=== PATIENT | male | born 1990 | race Caucasian/White ===

== ENCOUNTER 2019-11-04 18:56 | Inpatient (IN) | payer BC, SELFPAY ==
[2019-11-04] VITALS (18 sets, daily range): BP systolic 119–191; BP diastolic 69–106; PULSE 67–160; RESP 14–31; TEMP 36.6–38.2; O2SAT 35–100; BMI 31.2; BMI 29.8
--- NOTE | 2019-11-04 19:23 | ED.DCSUM_ITS ---
History of Present Illness Chief Complaint: Foreign Body Detail of Chief Complaint: Food bolus obstructing esophagus Informant: Patient Onset: Today, Weeks Timing: Continuous Quality: Read by Triston weems obstructing esophagus unable to swallow Location: Esophagus Current Severity: Moderate Maximum Severity: Moderate Worsened by: Nothing Relieved by: Nothing Associated Symptoms: Unable to swallow secretions Narrative: She is a healthy 29-year-old male on no medication and no medication allergies who presents because his been interval swallow after eating a rib eye steak. He feels it is stuck in his throat. He has not been able to swallow his own secretions. He has no prior history of esophageal obstruction. His only medical problem is related to his right knee. Prior similar symptoms: No Recent Illness/Hospitalization: No - Past Medical History (1) No significant past medical history Status: Acute Past Medical History - Allergies and Home Meds Allergies/Adverse Reactions: Allergies Fish Containing Products Allergy (Verified 11/04/19 18:57) Hives Prior records reviewed: Yes Past Medical History: None Surgical History: no surgical history Lives: Spouse/ Significant Other Smoking Status: Former smoker Alcohol: Rare Drugs: None - Family History Maternal Family History: Reports: No pertinent history Review of Systems General: Denies: Chills, Fever, Malaise, Sweats Eyes: Denies: Visual changes - bilaterally, Blurred Vision - bilaterally ENT: Reports: - - Pain and unable to swallow Cardiovascular: Denies: Chest pain, Palpitations, Heart racing Respiratory: Denies: Dyspnea, Cough, Sputum, Dyspnea on exertion Gastrointestinal: Denies: Abdominal pain, Nausea, Vomiting, Diarrhea, Melena, Hematochezia Musculoskeletal: Denies: Myalgias, Arthralgias, Neck pain, Back pain, Swelling, Extremity Pain Allergy: Denies: Uticaria, Swelling of the mouth Physical Exam Vital Signs/Narrative: Vital Signs Temp Pulse Resp BP Pulse Ox 11/04/19 18:58 97.9 F 73 15 123/90 H 95 Inital Vital Signs reviewed: Yes General: Well nourished, Well developed, - - Expectorating saliva into emesis bag Head: Normocephalic, Atraumatic Eyes: Perrl, EOMI. Negative for: Pale conjunctiva, Scleral icterus ENT: Moist mucous membranes, No rhinorrhea Neck: Supple, Nontender, No lymphadenopathy, No JVD, - - Trachea is midline. There is no inspiratory or expiratory stridor. Cardiovascular: Regular rate, Regular rhythm, No murmurs, Normal S1, Normal S2 Respiratory: No distress, CTA bilaterally, Chest nontender Skin: Normal color, No rash. Negative for: Cyanosis, Diaphoresis, Jaundice Neurological: Alert, Oriented x3, Cranial nerves II-XII grossly intact, Normal Strength, Normal Sensation Psychological: Normal affect, Normal Mood Diagnostic/Tx/Re-eval Chest X-Ray - ED: 1 View, Read by ED Physician, - - Endotracheal tube is in the right main bronchus. There is collapse of the left upper and left lower lung. OG is in proper position. Impressions Chest X-Ray 11/04/19 20:50 IMPRESSION: Right mainstem intubation with nearly complete atelectasis of the left lung. Recommend immediate repositioning of the endotracheal tube. Electronically Signed: David Stoner MD at 21:43 EST , Service support , 11/04/19 20:50 Chest 1 View (Portable) [RAD] Stat Laboratory Results 11/04/19 11/04/19 21:05 21:05 WBC 13.3 H RBC 4.89 Hgb 13.5 Hct 41.0 MCV 83.8 MCH 27.6 MCHC 32.9 RDW Std Deviation 41.7 RDW Coeff of Norberto 13.6 Plt Count 280 MPV 10.5 Immature Gran % (Auto) 1.000 H Neut % (Auto) 57.3 Lymph % (Auto) 34.0 [place] % (Auto) 6.2 Eos % (Auto) 1.1 Baso % (Auto) 0.4 Absolute Neuts (auto) 7.6 Absolute Lymphs (auto) 4.54 H Nucleated RBC % 0 Sodium 144 Potassium 3.6 Chloride 111 H Carbon Dioxide 26.0 Anion Gap 7 BUN 14 Creatinine 1.13 Estim Creat Clear Calc 96.46 Est GFR (MDRD) Af Amer 99 Est GFR (MDRD) Non-Af 81 BUN/Creatinine Ratio 12.4 Glucose 121 H Calcium 8.4 L Total Bilirubin 0.30 AST 24 ALT 43 Alkaline Phosphatase 94 Total Protein 7.7 Albumin 3.6 Globulin 4.1 Albumin/Globulin Ratio 0.9 The tracheal tube was pulled back 2 cm. White count is elevated 13.3. Comprehensive metabolic panel is essentially unremarkable. The glucose is slightly elevated at 121. Lactate is pending. Suspect lactate will be elevated because of hypoxia due to aspiration. Patient does not have an acute infectious process. - Medical Decision Making He was made n.p.o., placed on monitor and an IV was established. Dr. Basilia Canela was paged. She informed she does not remove esophageal foreign bodies. Dr. Fartun Zambrano will see patient in attempt to remove obstructing meat bolus from esophagus. - Critical Care Time Critical care time (excluding procedures): 30-74 minutes, Discussing w/Patient &/or Family/Director [employer], Discussing w/Consultants, Arranging Admission or Transfer - This excludes billable procedural time. Total critical care time 32 minutes this included discussion with patient and . Informing of events that occurred. Discussion with surgeon to perform EGD, discussion with hospitalist for admission to ICU, documentation, interpretation of laboratory results. Procedures Procedure(s): Deep sedation for EGD and removal of meat food bolus obstructing esophagus. Patient was informed of the risk benefits of using propofol. Risk benefits regarding EGD and removal of foreign body was discussed by surgeon. Patient denies allergy to soy products or milk products. He has no antibiotic allergies. Onset of procedure 2005. Conclusion of procedure 2044. Patient was administered boluses of IV propofol by me. At 2031 patient was noted to be tachycardic and appeared cyanotic. Pulse ox was abnormal. Even though the waveform was abnormal believed to be true since patient had central cyanosis. Call was made for assistance. Respiratory therapist arrived promptly. Multiple nurses arrived. Patient received 100 mg rocuronium. He was oral tracheal intubated using glide scope. 7.5 Ni[place] endotracheal tube was placed. Surgeon then completed EGD and did alleviate the obstruction. Because there is erosion of the esophagus patient will receive IV Protonix. Procedures: 1. Deep sedation. 2. Ventilation with bag valve mask. 3. Intubation by RSI technique. ED Disposition - Plan for ED Patient: Disposition: Acute Care Hospital [facility] Diagnosis: Acute respiratory failure with hypoxia, Aspiration pneumonia due to food (regurgitated), Esophageal obstruction due to food impaction
--- NOTE | 2019-11-04 20:02 | PCM.CONS.GEN ---
Reason for Consult Date of Consultation: 11/04/19 History of Present Illness: The patient is a 29 year old M presenting to the ER due to esophageal foreign body/food impaction. Patient states he was having his lunch about 5 PM which was T-bone steak. [place] like it caught in his upper esophagus. Patient has been spitting up his saliva. Patient denies any history of EGD in the past. Patient does have have a history of reflux however he did 30 days of Protonix but a month ago and denies any symptoms since then. Past Medical History Allergies Fish Containing Products Allergy (Verified 11/04/19 18:57) Hives Home Medications: Ambulatory Orders Medication Instructions Recorded Oxaprozin [Daypro] 600 mg PO BID 11/04/19 Surgical History: no surgical history Lives: Spouse/ Significant Other Smoking Status: Former smoker Alcohol: Rare Drugs: None - *Family History Maternal History Items: No pertinent history - Physical Exam Vitals/I&O's: Vital Signs Temp Pulse Resp BP Pulse Ox 97.9 F 73 15 123/90 H 95 11/04/19 18:58 11/04/19 18:58 11/04/19 18:58 11/04/19 18:58 11/04/19 18:58 Oxygen Delivery Method Room Air Weight: 211 lb 9.6 oz Body Mass Index (BMI) 31.2 General: Alert, Oriented x3, Cooperative HEENT: Atraumatic Lungs: Normal air movement Cardiovascular: Regular rate Abdomen: Soft, Non Tender, Non-Distended Extremities: No clubbing, No cyanosis, No edema Neurological: Cranial nerves II-XII grossly intact Psych/Mental Status: Normal Affect Assessment/Plan All Active Problems No significant past medical history (Acute) 29-year-old male with esophageal foreign body?steak I have discussed the above with the patient. I have offered the patient EGD with foreign body removal for evaluation. I have explained the risks/benefits of the procedure and described the procedure. I have discussed the risks with the patient, including but not limited to: infection, bleeding, perforation of the GI tract requiring emergency surgery, inability to complete the procedure and need to be transferred to a tertiary care facility, injury to any internal organs, complications of anesthesia, etc. - the patient understands and agrees to proceed. I have answered all the patient's questions to the patient's satisfaction and the patient has no further questions. Fartun Shepherd M.D. Pager: [phone] [facility] [address] [place] [address], [address] [place] [address] Office: [phone]
[2019-11-04] MEDS: Propofol 200 MG/20 ML Vial IV BOLUS (20:26)
[2019-11-04] MEDS: Propofol 200 MG/20 ML Vial 100 MG IV BOLUS (20:26)
[2019-11-04] MEDS: Rocuronium Bromide 50 MG/5 ML Vial 100 MG IV (20:34)
[2019-11-04] MEDS: Propofol 10MG/Ml 1,000 MG/100 ML Bottle 5.8 MG CONT INF (20:40)
--- NOTE | 2019-11-04 20:40 | EKG12_ITS ---
Test Reason : ADMIT EKG Blood Pressure : / mmHG Vent. Rate : 099 BPM Atrial Rate : 099 BPM P-R Int : 128 ms QRS Dur : 090 ms QT Int : 332 ms P-R-T Axes : -01 053 020 degrees QTc Int : 426 ms Normal sinus rhythm Normal ECG No previous ECGs available Confirmed by RADHA BOOKER, PEÑA ([id number]), web editor VIOLETTA MEJIA ([id number]) on 11/08/2019 11:44:28 AM Referred By: Eli Lyman Confirmed By:PEÑA GARCIA MD
--- NOTE | 2019-11-04 20:50 | RAD_ITS ---
We are attempting to reach an attending provider to discuss findings. An addendum with communication details will be sent when the communication is complete. STUDY: X-RAY CHEST REASON FOR EXAM: Male, 29 years old. Impaction food in the throat. TECHNIQUE: Single AP portable view of the chest. COMPARISON: None. FINDINGS: There is right mainstem intubation with near complete atelectasis of the right lung and shift of the mediastinum to the right. Endotracheal tube needs to be repositioned for a 5 cm proximally. Nasogastric tube terminates in the distal stomach. Right lung is clear. RAD/Chest 1 View (Portable) IMPRESSION: Right mainstem intubation with nearly complete atelectasis of the left lung. Recommend immediate repositioning of the endotracheal tube. Electronically Signed: David Stoner MD at 21:43 EST , Service support ,
--- NOTE | 2019-11-04 21:11 | ED.RN ---
2025 PT was undergoing EGD for steak stuck in throat. PT needed all 200 mg of Propofol for sedation and was gagging through procedure. O2 saturations went down in to low 30's. Staff assist pushed. EGD stopped. PT bagged while staff prepared for rapid sequence intubation. PT intubated at 2034 after 100mg of Aristides. was given. 7.5 ET tube intubated by Dr. Amaro with Dr. Shepherd and Dr. Herrera at bedside. 2nd IV placed. OG placed. PT underwent additional EGD and it was found that the steak was never in esophagus.
[2019-11-04 21:14] LABS: Absolute Lymphocyte Count 4.54 X10^3/uL (0.83-4.51); Absolute Neutrophil Count 7.6 X10^3/uL (2.0-7.7); Basophil# 0.05 X10^3/uL; Basophil% 0.4 % (0-1); Eosinophil# 0.15 X10^3/uL; Eosinophils% 1.1 % (0-5); Hemoglobin 13.5 g/dL (13.0-16.5); Lymphocyte # 4.54 X10^3/ul (4.0); Mean Corp Hgb Conc 32.9 g/dL (32-36); Mean Corpuscular Hgb 27.6 pg (27.0-32.0); Mean Corpuscular Volume 83.8 fL (80-94); Mean Platelet Vol. 10.5 fl (6.2-12.0); Monocyte# 0.83 X10^3/uL; Monocyte% 6.2 % (0-10); NRBC Flagged by Analyzer 0 % (0-5); Neutrophil # 7.63 X10^3/uL (2.7-7.7); Neutrophil % 57.3 % (47-70); Platelet Count 280 K/mm3 (150-450); RBC Distribution Width CV 13.6 % (11.6-14.6); RBC Distribution Width SD 41.7 fl (35.1-43.9); Red Blood Count 4.89 M/mm3 (4.6-6.2); White Blood Count 13.3 K/mm3 (4.4-11.0)
--- NOTE | 2019-11-04 21:22 | OP.EGD_ITS ---
Patient Name: Wayne Eugene Procedure Date: 11/04/2019 8:18 PM Date of : 1990 Age: 29 Procedure: Upper GI endoscopy Indications: Foreign body in the esophagus Providers: Fartun Shepherd MD Medicines: IV sedation per ER physician Dr. Amaro Patient Profile: This is a 29 year old male. Complications: Aspiration, treated with antibiotic, treated with intubation, treated with stabilization and transfer to the ICU Procedure: Pre-Anesthesia Assessment: - Prior to the procedure, a History and Physical was performed, and patient medications and allergies were reviewed. The patient's tolerance of previous anesthesia was also reviewed. The risks and benefits of the procedure and the sedation options and risks were discussed with the patient. All questions were answered, and informed consent was obtained. Prior Anticoagulants: The patient has taken no previous anticoagulant or antiplatelet agents. ASA Grade Assessment: II - A patient with mild systemic disease. After reviewing the risks and benefits, the patient was deemed in satisfactory condition to undergo the procedure. After obtaining informed consent, the endoscope was passed under direct vision. Throughout the procedure, the patient's blood pressure, pulse, and oxygen saturations were monitored continuously. The gastroscope was introduced through the mouth, with the intention of advancing to the stomach. The scope was advanced to the gastric body before the procedure was aborted. Medications were given. The procedure was aborted due to the patient's respiratory instability (pulmonary aspiration). Once pt was intubated by Dr. Amaro the scope was advanced to the stomach. Scope In: 8:27:36 PM Scope Out: 8:50:01 PM Total Procedure Duration Time 0 hours 22 minutes 25 seconds Findings: Thick liquid and small pieces of food were seen at GEJ, which some were able to be removed with the use of the overtube, but unable to get a good visualization. Patient did vomit and procedure was aborted due to respiratory distress and he was intubated. Once intubated, scope was passed down the esophagus and again a few small pieces of food was removed. There was irritation to the GEJ circumferentially. Large piece of food was seen in the fundus. Impression: - The procedure was aborted due to the patient's respiratory instability (pulmonary aspiration). - No specimens collected. - Replacement of the scope after intubation showed irritation at the GEJ likely from the large piece of food, food was seen in gastric fundus on repeat scope. Recommendation: - Admit the patient to ICU for aspiration. - Antibiotics for aspiration - Use Protonix (pantoprazole) 40 mg IV daily. - Continue present medications. Procedure Code(s): --- Professional --- 47974, 52, Esophagogastroduodenoscopy, flexible, transoral; diagnostic, including collection of specimen(s) by brushing or washing, when performed (separate procedure) Diagnosis Code(s): --- Professional --- Z53.09, Procedure and treatment not carried out because of other contraindication T18.108A, Unspecified foreign body in esophagus causing other injury, initial encounter CPT copyright 2017 [employer]. All rights reserved. The codes documented in this report are preliminary and upon buyer internship review may be revised to meet current compliance requirements. MD Fartun Clay MD 11/04/2019 9:22:06 PM This report has been signed electronically. Number of Addenda: 0 Note Initiated On: 11/04/2019 8:18 PM
[2019-11-04 21:38] LABS: International Normalized Ratio 1.3
[2019-11-04 21:39] LABS: Partial Thromboplast Time 30.7 Seconds (24.1-36.2)
[2019-11-04] MEDS: Albuterol 2.5 MG/3 ML VIAL.NEB. INHALATION (21:47)
[2019-11-04 21:48] LABS: ALB/GLOB Ratio 0.9 RATIO (0.9-2.4); AST(SGOT) 24 U/L (15-37); Alanine Aminotransfer ALT/SGPT 43 U/L (16-61); Albumin, Serum 3.6 g/dL (3.2-5.0); Alkaline Phosphatase 94 U/L (45-117); Anion Gap 7 (5-15); BUN 14 mg/dL (7-18); BUN/Creat Ratio 12.4 RATIO (10-20); Calcium,Total 8.4 mg/dL (8.5-10.1); Chloride 111 mmol/L (98-107); Creatinine, Serum 1.13 mg/dL (0.70-1.30); EST Glomerular Filtration Rate 81 mL/min (>60); Est Glom Filt Rate - Afr Amer 99 mL/min (>60); Estimated Creatinine Clearance 96.46 ml/min; Globulin 4.1 g/dL (2.2-4.2); Glucose 121 mg/dL (74-106); Potassium 3.6 mmol/L (3.5-5.1); Protein, Total 7.7 g/dL (6.4-8.2); Sodium Level 144 mmol/L (136-145)
[2019-11-04] MEDS: fentaNYL 100 MCG/2 ML Ampul 50 MCG IV (22:13)
--- NOTE | 2019-11-04 22:22 | HP.PCM_ITS ---
Problem List (1) Esophageal obstruction due to food impaction Status: Acute History of Present Illness Date of Admission: 11/04/19 The patient is a 29 year old M who is otherwise healthy presented to the ED today with the feeling that food was caught in his upper esophagus. He was eating his lunch at work which was a t-bone steak at about 1700 and then began having this feeling. He had since been spitting up his saliva. He was recently started on Protonix for GERD. General surgery was called in to extract the food impaction and during the procedure the pt had an emesis and dropped his O2 saturations. he became tachycardic and cyanotic during this period. He was intubated with a 7.5 ETT at that time and stabilized. After, the scope was reinserted and able to be passed into the fundus with the large piece of steak noted at that time in the stomach. There was circumfrential irritation of the esophagus and some blood in the OG tubing following this. CXR was perform and show significant infiltrate on the L. Pt was positioned on the L side for the procedure. Pt was stable but required ICU admission for persistent respiratory failure requiring mechanical ventilation. Past Medical History Allergies Fish Containing Products Allergy (Verified 11/04/19 18:57) Hives Home Medications: Ambulatory Orders Medication Instructions Recorded Oxaprozin [Daypro] 600 mg PO BID 11/04/19 Surgical History: no surgical history Lives: Spouse/ Significant Other Smoking Status: Former smoker Alcohol: Rare Drugs: None - *Family History Maternal History Items: No pertinent history Review of Systems Unable to obtain accurate/complete ROS d/t: Pt intubated and sedatated VTE Information - Inpt Only VTE Present on Admission: No VTE Mechan Device Prophylaxis: SCD's VTE Pharm Prophylaxis ordered?: Yes Patient Problems: Active and Suspected Problems Acute respiratory failure with hypoxia (Acute) Aspiration pneumonia due to food (regurgitated) (Acute) Esophageal obstruction due to food impaction (Acute) - Physical Exam Vitals/I&O's: Vital Signs Temp Pulse Resp BP Pulse Ox 97.9 F 88 16 136/103 H 94 11/04/19 18:58 11/04/19 21:49 11/04/19 21:49 11/04/19 22:00 11/04/19 21:33 Oxygen Flow Rate (L/min) [1] 97 Oxygen Flow Rate (L/min) [4] 6 Oxygen Flow Rate (L/min) [3] 6 Oxygen Delivery Method [1] Nasal Cannula Oxygen Delivery Method [4] Room Air Oxygen Delivery Method [3] Nasal Cannula Oxygen Delivery Method Mechanical Ventilator Weight: 95.98 kg Body Mass Index (BMI) 31.2 Intake and Output for Last 24 Hours 11/02/19 11/03/19 11/04/19 23:59 23:59 23:59 Intake Total 121.81 / 121.81 Balance 121.81 / 121.81 General: - - intubated and sedated on mechanical ventilation HEENT: Atraumatic, PERRLA, Normocephalic, EAC Clear Oral: Moist Mucosa Neck: Supple, No JVD, Negative Carotid Bruits, Negative Hepatojugular Reflux, No Nodes, No Nuchal Rigidity, Trachea Midline, Thyroid Normal Size and Texture Lungs: No wheeze, No rales, Rhonchi - L lung Cardiovascular: Regular rate, Regular Rhythm, Normal S1, Normal S2, No murmurs, No Ectopic Activity, No rub noted, No Gallop Abdomen: Bowel Sounds Present, Soft, Non Tender, Non-Distended, No Hepato- splenomegaly, No hernias noted, - - overweight Extremities: No clubbing, No cyanosis, No edema, Capillary Refill Less than 3 Seconds, Peripheral Pulses Normal Skin: No rashes, No breakdown, Ulcer/ Wound Musculoskeletal: No Tenderness to Palpation of Joints or Extremities, No Muscle Wasting, - - Knee brace on R knee Lymphatic: No Cervical, Supraclavicular, or Inguinal Adenopathy Neurological: Deep Tendon Reflexes 2+/4 and Symmetrical, - - unable to do complete neuro eval as pt is intubated and sedated Psych/Mental Status: - - unable to assess Laboratory Results 11/04/19 21:05: WBC 13.3 H, RBC 4.89, Hgb 13.5, Hct 41.0, MCV 83.8, MCH 27.6, MCHC 32.9, RDW Std Deviation 41.7, RDW Coeff of Norberto 13.6, Plt Count 280, MPV 10.5, Immature Gran % (Auto) 1.000 H, Neut % (Auto) 57.3, Lymph % (Auto) 34.0, [place] % (Auto) 6.2, Eos % (Auto) 1.1, Baso % (Auto) 0.4, Absolute Neuts (auto) 7.6, Absolute Lymphs (auto) 4.54 H, Nucleated RBC % 0 11/04/19 21:05: Sodium 144, Potassium 3.6, Chloride 111 H, Carbon Dioxide 26.0, Anion Gap 7, BUN 14, Creatinine 1.13, Estim Creat Clear Calc 96.46, Est GFR (MDRD) Af Amer 99, Est GFR (MDRD) Non-Af 81, BUN/Creatinine Ratio 12.4, Glucose 121 H, Calcium 8.4 L, Total Bilirubin 0.30, AST 24, ALT 43, Alkaline Phosphatase 94, Total Protein 7.7, Albumin 3.6, Globulin 4.1, Albumin/Globulin Ratio 0.9 11/04/19 21:25: PT 16.0 H, INR 1.3, APTT 30.7 11/04/19 21:25: Lactic Acid Pending Current Medications Propofol (Diprivan) 1,000 mg in 100 mls @ 5.759 mls/hr CONT INF .Q12H ZULEYMA; Protocol Last Titration: 11/04/19 22:00 Dose: 30 mcg/kg/min, 17.3 mls/hr Documented by: Pantoprazole Sodium 40 mg/ (Sodium Chloride) 110 mls @ 330 mls/hr IV Q12 ZULEYMA Fentanyl () 100 mls @ 2.5 mls/hr IV UD ZULEYMA; Protocol Assessment/Plan All Active Problems No significant past medical history (Acute) Acute respiratory failure with hypoxia (Acute) Aspiration pneumonia due to food (regurgitated) (Acute) Esophageal obstruction due to food impaction (Acute) Acute Hypoxemic Respiratory Failure 2/2 Aspiration -pt intubated and sedated -Unasyn for aspiration coverage -check sputum cx -AM CXR -Hold TF for now with OG to LIS -ABG in am -vent weaning as able starting 11/05 -consult to pulm/CCM Esophageal Food Impaction -resolved -hold TF until ok with Gen Surgery -IV protonix BID 40 mg GERD -PPI--> See above R Knee Pain -no current issues -has been on Daypro at home DVT prophylaxis -lovenox sub q 40 mg Code Visit Inpatient E&M: 13859 Init Hosp L3
[2019-11-04 22:24] LABS: Lactic Acid 1.1 mmol/L (0.4-1.9)
--- NOTE | 2019-11-04 22:58 | ED.RN ---
2200 PT AGITATED, TRYING TO COMMUNICATE WITH SPOUSE. MORE SEDATION MED GIVEN. NEW SEDATION ORDER OBTAINED. SOFT RESTRAINTS APPLIED. PT VOMITED. OG FLUSHED, FLUSHES EASILY, DOES NOT DRAW BACK ANY FLUIDS, ONLY AIR. COATING INSPECTOR JOSE M NOTIFIED. PROTONIX ORDERS CLARIFIED. BROUGHT TO ICU WAITING ROOM AND UPDATED ON POC.
[2019-11-04] MEDS: Lactated Ringers 1,000 ML 70 ML IV (23:30)
[2019-11-04] MEDS: fentaNYL drip 100 ML 2.5 MCG IV (23:30)
[2019-11-04] MEDS: Chlorhexidine 15 ML PO (23:30)
[2019-11-04 23:52] LABS: CPK Total, Creatine Kinase 299 U/L (39-308); Triglycerides 276 mg/dL
[2019-11-05] VITALS (41 sets, daily range): BP systolic 95–127; BP diastolic 56–83; PULSE 59–110; RESP 14–18; TEMP 37.5–39.3; O2SAT 94–100
[2019-11-05] MEDS: Acetaminophen 650 MG/20 ML UDC GT ×2 (00:53→21:22)
[2019-11-05] MEDS: Propofol 10MG/Ml 1,000 MG/100 ML Bottle 17.3 MG CONT INF (03:14)
--- NOTE | 2019-11-05 04:10 | RAD_ITS ---
HISTORY: VDRF EXAM: XR Chest 1 View: COMPARISON: November 04, 2019 FINDINGS: # of images incl. paperwork: 1 The endotracheal tube terminates superimposed over the trachea, below the level of the clavicular heads, and above the debbie. Esophagogastric tube's tip is below the diaphragm. Heart is not enlarged. Right lung airspace disease persists but has markedly improved since the previous study with increased aeration Pulmonary vascularity is more distinct in the left hemithorax. Probable small left pleural effusions. RAD/Chest 1 View (Portable) IMPRESSION: Withdrawal of the endotracheal tube above the debbie. Improved aeration to the left lung with persistent left lower lobe airspace disease. at 0510 Reported and signed by: Moe Langston MD Electronically Signed: Moe Langston MD at 5:09 EST Tel , Service support ,
[2019-11-05 04:30] LABS: Absolute Lymphocyte Count 1.49 X10^3/uL (0.83-4.51); Absolute Neutrophil Count 15.3 X10^3/uL (2.0-7.7); Basophil# 0.05 X10^3/uL; Basophil% 0.3 % (0-1); Eosinophil# 0.14 X10^3/uL; Eosinophils% 0.8 % (0-5); Hematocrit 43.3 % (40-54); Hemoglobin 14.2 g/dL (13.0-16.5); Lymphocyte # 1.49 X10^3/ul (4.0); Lymphocyte % 8.2 % (19-41); Mean Corp Hgb Conc 32.8 g/dL (32-36); Mean Corpuscular Hgb 27.6 pg (27.0-32.0); Mean Corpuscular Volume 84.1 fL (80-94); Mean Platelet Vol. 10.5 fl (6.2-12.0); Monocyte# 1.12 X10^3/uL; Monocyte% 6.2 % (0-10); NRBC Flagged by Analyzer 0 % (0-5); Neutrophil # 15.25 X10^3/uL (2.7-7.7); Neutrophil % 83.8 % (47-70); Platelet Count 287 K/mm3 (150-450); RBC Distribution Width CV 13.5 % (11.6-14.6); RBC Distribution Width SD 41.5 fl (35.1-43.9); Red Blood Count 5.15 M/mm3 (4.6-6.2); White Blood Count 18.2 K/mm3 (4.4-11.0)
[2019-11-05 04:48] LABS: ALB/GLOB Ratio 0.8 RATIO (0.9-2.4); AST(SGOT) 20 U/L (15-37); Alanine Aminotransfer ALT/SGPT 43 U/L (16-61); Albumin, Serum 3.4 g/dL (3.2-5.0); Alkaline Phosphatase 87 U/L (45-117); Anion Gap 6 (5-15); BUN 12 mg/dL (7-18); Calcium,Total 8.3 mg/dL (8.5-10.1); Chloride 107 mmol/L (98-107); EST Glomerular Filtration Rate 76 mL/min (>60); Est Glom Filt Rate - Afr Amer 92 mL/min (>60); Estimated Creatinine Clearance 90.83 ml/min; Globulin 4.1 g/dL (2.2-4.2); Glucose 130 mg/dL (74-106); Magnesium 1.9 mg/dL (1.6-2.6); Phosphorus 3.3 mg/dL (2.5-4.9); Potassium 3.8 mmol/L (3.5-5.1); Protein, Total 7.5 g/dL (6.4-8.2); Sodium Level 141 mmol/L (136-145)
[2019-11-05 05:36] LABS: Allen Test POS; Base Excess 0 mmol/L (-2 to +2); Bicarbonate 25.1 mmol/L (22-26); Blood Gas Specimen Type ART; FI02 40; Mode A-C; O2 Delivery Device Vent; PEEP 8; PO2 104 mmHG (75-100); RR 14; SITE L Radial; SO2 98 % (95-99); Time Given 525; Total Carbon Dioxide 26 mmol/L; Vt 500; pH 7.38 (7.35-7.45)
[2019-11-05] MEDS: Albuterol 2.5 MG/3 ML VIAL.NEB. INHALATION (07:01)
--- NOTE | 2019-11-05 07:16 | CON.PCM_ITS ---
Problem List (1) No significant past medical history Status: Acute (2) Acute respiratory failure with hypoxia Status: Acute (3) Aspiration pneumonia due to food (regurgitated) Status: Acute Qualifiers: Laterality: left Lung location: unspecified part of lung Qualified Code(s): J69.0 - Pneumonitis due to inhalation of food and vomit (4) Esophageal obstruction due to food impaction Status: Acute Reason for Consult Date of Consultation: 11/05/19 Reason for Consultation: Respiratory failure History of Present Illness: The patient is a 29 year old M, with no reported past medical history, who presented to [facility] on 11/04/2019 secondary to an inability to tolerate oral secretions. Patient reportedly had been eating a rib eye steak and felt that it was stuck in his throat. Patient was unable to swallow his own secretions and presented to the ER for evaluation. Initially on presentation to the ER, patient was reportedly on room air saturating 95% expectorating saliva into an emesis bag. There were no respiratory complaints or findings noted. Patient had an emergent evaluation by surgery for possible removal of the obstruction. Anesthesia was provided by the ER physician, but reportedly during the procedure with the patient in the left lateral decubitus position, patient became less responsive and had an aspiration event. Patient was intubated. Initial chest x-ray showed a right mainstem intubation, but this was corrected. Patient was transferred to the intensive care unit for further evaluation. Overnight, patient had a T-max of 39.3 ?C and has been on 8 of PEEP and 40% to maintain appropriate saturations. Patient has been difficult to sedate per nursing staff, but on my evaluation was not able to answer any questions. Patient reportedly had an element of gastritis with irritation at the GE junction circumferentially. Patient was not initiated on any tube feeds or anything by mouth. Patient was placed on aspiration coverage overnight. Unable to obtain a review of systems secondary to acute condition, intubation and sedation. Past Medical History Allergies Fish Containing Products Allergy (Verified 11/04/19 18:57) Hives Home Medications: Ambulatory Orders Medication Instructions Recorded Oxaprozin [Daypro] 600 mg PO BID 11/04/19 Surgical History: no surgical history Lives: Spouse/ Significant Other Smoking Status: Former smoker Alcohol: Rare Drugs: None - *Family History Maternal History Items: No pertinent history Review of Systems Unable to obtain accurate/complete ROS d/t: Intubated and sedated Patient Problems: Active and Suspected Problems Acute respiratory failure with hypoxia (Acute) Aspiration pneumonia due to food (regurgitated) (Acute) Esophageal obstruction due to food impaction (Acute) Objective: All imaging was personally reviewed. Initial chest x-ray did show a right mainstem intubation, but follow-up x-ray shows all supportive devices in appropriate position. - Physical Exam Vitals/I&O's: Vital Signs Temp Pulse Resp BP Pulse Ox 37.5 C H 66 14 112/72 99 11/05/19 06:00 11/05/19 07:01 11/05/19 07:01 11/05/19 06:00 11/05/19 07:01 Oxygen Flow Rate (L/min) [1] 97 Oxygen Flow Rate (L/min) [4] 6 Oxygen Flow Rate (L/min) [3] 6 Oxygen Delivery Method [1] Nasal Cannula Oxygen Delivery Method [4] Room Air Oxygen Delivery Method [3] Nasal Cannula Oxygen Delivery Method Mechanical Ventilator Weight: 92 kg Body Mass Index (BMI) 29.8 Intake and Output for Last 24 Hours 11/03/19 11/04/19 11/05/19 23:59 23:59 23:59 Intake Total 262.09 / 302.67 718.60 / 718.60 Output Total 775 / 775 Balance 262.09 / -122.33 -56.40 / -56.40 General: - - Intubated and sedated. RASS -2. HEENT: Atraumatic, PERRLA, EOMI, Normocephalic Oral: Moist Mucosa, No Gingival or Mucosal Lesions/ Ulcerations Neck: Supple, No JVD, Negative Carotid Bruits Lungs: No wheeze, No rales, Diminished, Rhonchi Cardiovascular: Regular rate, Normal S1, Normal S2, No murmurs, No rub noted, No Gallop Abdomen: Bowel Sounds Present, Soft, Non Tender Extremities: No clubbing, No cyanosis, No edema, Capillary Refill Less than 3 Seconds Skin: No rashes, No breakdown Musculoskeletal: No Tenderness to Palpation of Joints or Extremities Lymphatic: No Cervical, Supraclavicular, or Inguinal Adenopathy Neurological: Cranial nerves II-XII grossly intact, Neuro grossly intact Psych/Mental Status: Flat Affect Laboratory Results 11/04/19 21:05: WBC 13.3 H, RBC 4.89, Hgb 13.5, Hct 41.0, MCV 83.8, MCH 27.6, MCHC 32.9, RDW Std Deviation 41.7, RDW Coeff of Norberto 13.6, Plt Count 280, MPV 10.5, Immature Gran % (Auto) 1.000 H, Neut % (Auto) 57.3, Lymph % (Auto) 34.0, Josephine % (Auto) 6.2, Eos % (Auto) 1.1, Baso % (Auto) 0.4, Absolute Neuts (auto) 7.6, Absolute Lymphs (auto) 4.54 H, Nucleated RBC % 0 11/04/19 21:05: Sodium 144, Potassium 3.6, Chloride 111 H, Carbon Dioxide 26.0, Anion Gap 7, BUN 14, Creatinine 1.13, Estim Creat Clear Calc 96.46, Est GFR (MDRD) Af Amer 99, Est GFR (MDRD) Non-Af 81, BUN/Creatinine Ratio 12.4, Glucose 121 H, Calcium 8.4 L, Total Bilirubin 0.30, AST 24, ALT 43, Alkaline Phosphatase 94, Total Protein 7.7, Albumin 3.6, Globulin 4.1, Albumin/Globulin Ratio 0.9 11/04/19 21:05: Total Creatine Kinase 299, Triglycerides 276 H 11/04/19 21:25: PT 16.0 H, INR 1.3, APTT 30.7 11/04/19 21:25: Lactic Acid 1.1 11/05/19 04:15: WBC 18.2 H, RBC 5.15, Hgb 14.2, Hct 43.3, MCV 84.1, MCH 27.6, MCHC 32.8, RDW Std Deviation 41.5, RDW Coeff of Norberto 13.5, Plt Count 287, MPV 10.5, Immature Gran % (Auto) 0.700, Neut % (Auto) 83.8 H, Lymph % (Auto) 8.2 L, Josephine % (Auto) 6.2, Eos % (Auto) 0.8, Baso % (Auto) 0.3, Absolute Neuts (auto) 15.3 H, Absolute Lymphs (auto) 1.49, Nucleated RBC % 0 11/05/19 04:15: Sodium 141, Potassium 3.8, Chloride 107, Carbon Dioxide 28.0, Anion Gap 6, BUN 12, Creatinine 1.20, Estim Creat Clear Calc 90.83, Est GFR (MDRD) Af Amer 92, Est GFR (MDRD) Non-Af 76, BUN/Creatinine Ratio 10.0, Glucose 130 H, Calcium 8.3 L, Phosphorus 3.3, Magnesium 1.9, Total Bilirubin 0.50, AST 20, ALT 43, Alkaline Phosphatase 87, Total Protein 7.5, Albumin 3.4, Globulin 4.1, Albumin/Globulin Ratio 0.8 L 11/05/19 05:31: Specimen Type ART, Sample Site L Radial, pH 7.38, Bicarbonate Actual 25.1, POC Total CO2 26, Base Excess 0, O2 Saturation 98, O2 % 40, ABG pCO2 43.0, ABG pO2 104 H, Eddy Test POS, Respiration Rate 14, O2 Delivery Device Vent, Minute Volume 7.00, Vent Mode A-C, Tidal Volume 500, POC PEEP 8, Blood Gas Notified Whom ICU MD, Blood Gas Notified Time 525 Clinical Impression(s) from Imaging Studies Chest X-Ray 11/04/19 20:50 IMPRESSION: Right mainstem intubation with nearly complete atelectasis of the left lung. Recommend immediate repositioning of the endotracheal tube. Electronically Signed: David Stoner MD at 21:43 EST , Service support , ADDENDUM: 11/04/19 2204 IMPRESSION: Right mainstem intubation with nearly complete atelectasis of the left lung. Recommend immediate repositioning of the endotracheal tube. N.B. : Jean Carlos Amaro MD, confirmed on 11/04/2019 21:57:14 (ET) that the referring physician received the results and does not require a verbal communication. Electronically Signed: David Stoner MD at 21:43 EST , Service support , Chest X-Ray 11/05/19 04:10 IMPRESSION: Withdrawal of the endotracheal tube above the debbie. Improved aeration to the left lung with persistent left lower lobe airspace disease. at 0510 Reported and signed by: Moe Langston MD Electronically Signed: Moe Langston MD at 5:09 EST Tel , Service support , Current Medications Acetaminophen (Tylenol Liquid) 650 mg GT Q4H PRN PRN PRN Reason: FEVER Last Admin: 11/05/19 00:53 Dose: 650 mg Documented by: Albuterol Sulfate (Ventolin Aerosols) 2.5 mg INHALATION Q4H.RT ZULEYMA Last Admin: 11/05/19 07:01 Dose: 2.5 mg Documented by: Chlorhexidine Gluconate () 15 ml PO BID ZULEYMA Last Admin: 11/04/19 23:30 Dose: 15 ml Documented by: Enoxaparin Sodium (Lovenox) 40 mg SC DAILY ZULEYMA Fentanyl Citrate (Sublimaze (100mcg Ampule)) 50 mcg IV Q2H PRN PRN PRN Reason: Pain >/= 4/10 or CPOT>/= 3/8 Lactated Ringer's () 1,000 mls @ 70 mls/hr IV .[id number] ZULEYMA Last Infusion: 11/05/19 06:00 Dose: 70 mls/hr Documented by: Propofol (Diprivan) 1,000 mg in 100 mls @ 5.52 mls/hr CONT INF .Q12H ZULEYMA; Protocol Last Titration: 11/05/19 06:15 Dose: 20 mcg/kg/min, 11 mls/hr Documented by: Sodium Chloride () 250 mls @ 15 mls/hr IV .[id number] PRN PRN Reason: Saline Flush Last Admin: 11/05/19 01:42 Dose: 15 mls/hr Documented by: Fentanyl () 100 mls @ 2.5 mls/hr IV UD ZULEYMA; Protocol Last Titration: 11/05/19 06:00 Dose: 25 mcg/hr, 2.5 mls/hr Documented by: Pantoprazole Sodium 40 mg/ (Sodium Chloride) 110 mls @ 330 mls/hr IV Q12 ZULEYMA Last Admin: 11/05/19 00:59 Dose: Not Given Documented by: Ampicillin Sodium/Sulbactam (Sodium 3 gm/ Sodium Chloride) 112 mls @ 150 mls/hr IV Q6 ZULEYMA Last Admin: 11/05/19 06:34 Dose: 150 mls/hr Documented by: Ondansetron HCl (Zofran) 4 mg IV Q6H PRN PRN PRN Reason: Nausea Sodium Chloride () 10 - 40 ml IV UD PRN PRN Reason: SALINE FLUSH Assessment/Plan Active and Suspected Problems Acute respiratory failure with hypoxia (Acute) Aspiration pneumonia due to food (regurgitated) (Acute) Esophageal obstruction due to food impaction (Acute) RECOMMENDATIONS: 1. Continue mechanical ventilation 2. Antibiotics for aspiration pneumonia. Hold off on steroids 3. Spontaneous breathing and awakening trials per protocol 4. Repeat chest x-ray in a.m. 5. Wean oxygen as tolerated IMPRESSIONS: 1. Acute hypoxic respiratory failure secondary to aspiration pneumonia Patient in the left lateral decubitus position for an EGD during aspiration event. This will lead to significant left-sided findings on imaging. Patient did spike a significant fever overnight and is appropriately covered with antibiotics. We will continue with mechanical ventilation for now. Chest x-ray will be completed in the morning to see the extent of the aspiration. Oxygenation appears to be doing well at this time. We will hold off on any steroids as patient has no reported obstructive lung disease. 2. Esophageal obstruction Patient reportedly with GE junction circumferential irritation indicating probable obstruction. Will need to monitor for bowel obstruction. Tube feeds per surgery. Patient currently receiving PPI IV. Surgery following. TIME: 31 minutes critical care time spent addressing patient's acute hypoxic respiratory failure, aspiration pneumonia, esophageal obstruction, review of all data and collaboration with care team (6:30 AM to 7:30 AM) Code Visit [id number]: [id number] Critical care first hour
--- NOTE | 2019-11-05 07:38 | PN.SURG_ITS ---
Patient Problems: Active and Suspected Problems Acute respiratory failure with hypoxia (Acute) Aspiration pneumonia due to food (regurgitated) (Acute) Esophageal obstruction due to food impaction (Acute) Subjective: still intubated fio2 down to 40%, WBC 18 on unasyn IV, alert and able to nod heads to questions - Physical Exam Vitals/I&O's: Vital Signs Temp Pulse Resp BP Pulse Ox 99.5 F H 63 14 112/72 99 11/05/19 06:00 11/05/19 07:12 11/05/19 07:01 11/05/19 06:00 11/05/19 07:01 Oxygen Flow Rate (L/min) [1] 97 Oxygen Flow Rate (L/min) [4] 6 Oxygen Flow Rate (L/min) [3] 6 Oxygen Delivery Method [1] Nasal Cannula Oxygen Delivery Method [4] Room Air Oxygen Delivery Method [3] Nasal Cannula Oxygen Delivery Method Mechanical Ventilator Weight: 202 lb 13.204 oz Body Mass Index (BMI) 29.8 Intake and Output for Last 24 Hours 11/03/19 11/04/19 11/05/19 23:59 23:59 23:59 Intake Total 262.09 / 302.67 718.60 / 718.60 Output Total 775 / 775 Balance 262.09 / -122.33 -56.40 / -56.40 General: Alert, - - Intubated, OG Lungs: Diminished - Left base Cardiovascular: Regular rate Abdomen: Soft, Non Tender, Non-Distended Laboratory Results 11/04/19 21:05: WBC 13.3 H, RBC 4.89, Hgb 13.5, Hct 41.0, MCV 83.8, MCH 27.6, MCHC 32.9, RDW Std Deviation 41.7, RDW Coeff of Norberto 13.6, Plt Count 280, MPV 10.5, Immature Gran % (Auto) 1.000 H, Neut % (Auto) 57.3, Lymph % (Auto) 34.0, [place] % (Auto) 6.2, Eos % (Auto) 1.1, Baso % (Auto) 0.4, Absolute Neuts (auto) 7.6, Absolute Lymphs (auto) 4.54 H, Nucleated RBC % 0 11/04/19 21:05: Sodium 144, Potassium 3.6, Chloride 111 H, Carbon Dioxide 26.0, Anion Gap 7, BUN 14, Creatinine 1.13, Estim Creat Clear Calc 96.46, Est GFR (MDRD) Af Amer 99, Est GFR (MDRD) Non-Af 81, BUN/Creatinine Ratio 12.4, Glucose 121 H, Calcium 8.4 L, Total Bilirubin 0.30, AST 24, ALT 43, Alkaline Phosphatase 94, Total Protein 7.7, Albumin 3.6, Globulin 4.1, Albumin/Globulin Ratio 0.9 11/04/19 21:05: Total Creatine Kinase 299, Triglycerides 276 H 11/04/19 21:25: PT 16.0 H, INR 1.3, APTT 30.7 11/04/19 21:25: Lactic Acid 1.1 11/05/19 04:15: WBC 18.2 H, RBC 5.15, Hgb 14.2, Hct 43.3, MCV 84.1, MCH 27.6, MCHC 32.8, RDW Std Deviation 41.5, RDW Coeff of Norberto 13.5, Plt Count 287, MPV 10.5, Immature Gran % (Auto) 0.700, Neut % (Auto) 83.8 H, Lymph % (Auto) 8.2 L, [place] % (Auto) 6.2, Eos % (Auto) 0.8, Baso % (Auto) 0.3, Absolute Neuts (auto) 15.3 H, Absolute Lymphs (auto) 1.49, Nucleated RBC % 0 11/05/19 04:15: Sodium 141, Potassium 3.8, Chloride 107, Carbon Dioxide 28.0, Anion Gap 6, BUN 12, Creatinine 1.20, Estim Creat Clear Calc 90.83, Est GFR (MDRD) Af Amer 92, Est GFR (MDRD) Non-Af 76, BUN/Creatinine Ratio 10.0, Glucose 130 H, Calcium 8.3 L, Phosphorus 3.3, Magnesium 1.9, Total Bilirubin 0.50, AST 20, ALT 43, Alkaline Phosphatase 87, Total Protein 7.5, Albumin 3.4, Globulin 4.1, Albumin/Globulin Ratio 0.8 L 11/05/19 05:31: Specimen Type ART, Sample Site L Radial, pH 7.38, Bicarbonate Actual 25.1, POC Total CO2 26, Base Excess 0, O2 Saturation 98, O2 % 40, ABG pCO2 43.0, ABG pO2 104 H, Eddy Test POS, Respiration Rate 14, O2 Delivery Device Vent, Minute Volume 7.00, Vent Mode A-C, Tidal Volume 500, POC PEEP 8, Blood Gas Notified Whom ICU MD, Blood Gas Notified Time 525 Current Medications Acetaminophen (Tylenol Liquid) 650 mg GT Q4H PRN PRN PRN Reason: FEVER Last Admin: 11/05/19 00:53 Dose: 650 mg Documented by: Albuterol Sulfate (Ventolin Aerosols) 2.5 mg INHALATION Q4H.RT ZULEYMA Last Admin: 11/05/19 07:01 Dose: 2.5 mg Documented by: Chlorhexidine Gluconate () 15 ml PO BID ZULEYMA Last Admin: 11/04/19 23:30 Dose: 15 ml Documented by: Enoxaparin Sodium (Lovenox) 40 mg SC DAILY ZULEYMA Fentanyl Citrate (Sublimaze (100mcg Ampule)) 50 mcg IV Q2H PRN PRN PRN Reason: Pain >/= 4/10 or CPOT>/= 3/8 Lactated Ringer's () 1,000 mls @ 70 mls/hr IV .[id number] ZULEYMA Last Infusion: 11/05/19 06:00 Dose: 70 mls/hr Documented by: Propofol (Diprivan) 1,000 mg in 100 mls @ 5.52 mls/hr CONT INF .Q12H ZULEYMA; Protocol Last Titration: 11/05/19 06:15 Dose: 20 mcg/kg/min, 11 mls/hr Documented by: Sodium Chloride () 250 mls @ 15 mls/hr IV .[id number] PRN PRN Reason: Saline Flush Last Admin: 11/05/19 01:42 Dose: 15 mls/hr Documented by: Fentanyl () 100 mls @ 2.5 mls/hr IV UD ZULEYMA; Protocol Last Titration: 11/05/19 06:00 Dose: 25 mcg/hr, 2.5 mls/hr Documented by: Pantoprazole Sodium 40 mg/ (Sodium Chloride) 110 mls @ 330 mls/hr IV Q12 ZULEYMA Last Admin: 11/05/19 00:59 Dose: Not Given Documented by: Ampicillin Sodium/Sulbactam (Sodium 3 gm/ Sodium Chloride) 112 mls @ 150 mls/hr IV Q6 ZULEYMA Last Admin: 11/05/19 06:34 Dose: 150 mls/hr Documented by: Ondansetron HCl (Zofran) 4 mg IV Q6H PRN PRN PRN Reason: Nausea Sodium Chloride () 10 - 40 ml IV UD PRN PRN Reason: SALINE FLUSH Medical Necessity - Tobacco Use Smoking Status: Former smoker Assessment/Plan All Active Problems Acute respiratory failure with hypoxia (Acute) Aspiration pneumonia due to food (regurgitated) (Acute) Esophageal obstruction due to food impaction (Acute) 29-year-old male with esophageal foreign body?steak, aspiration during EGD 1. Continue weaning the vent per ICU 2. Continue IV Unasyn due to aspiration 3. IV Protonix Fartun Shepherd M.D. Pager: [phone] [facility] [address] [place] [address], Outpatient [facility], [address] [place] [id number] Office: [phone]
--- NOTE | 2019-11-05 08:14 | PCM.PROGNOTE ---
Patient Problems: Active and Suspected Problems Acute respiratory failure with hypoxia (Acute) Aspiration pneumonia due to food (regurgitated) (Acute) Esophageal obstruction due to food impaction (Acute) Subjective: Chief complaint: Follow-up after admission for foreign body esophagus/esophageal obstruction, went for upper EGD and it was complicated by acute hypoxic respiratory failure and aspiration pneumonia. Patient seen and examined. He is intubated, on mechanical ventilation and on IV sedation. He is alert, responds to verbal stimuli. He denies any pain. Denies shortness of breath. He has been having spikes of low-grade fever, blood pressure and heart rate are maintained, on mechanical ventilation. - Physical Exam Vitals/I&O's: Vital Signs Temp Pulse Resp BP Pulse Ox 99.7 F H 65 14 109/71 96 11/05/19 08:00 11/05/19 08:00 11/05/19 08:00 11/05/19 08:00 11/05/19 08:00 Oxygen Flow Rate (L/min) [1] 97 Oxygen Flow Rate (L/min) [4] 6 Oxygen Flow Rate (L/min) [3] 6 Oxygen Delivery Method [1] Nasal Cannula Oxygen Delivery Method [4] Room Air Oxygen Delivery Method [3] Nasal Cannula Oxygen Delivery Method Mechanical Ventilator Weight: 202 lb 13.204 oz Body Mass Index (BMI) 29.8 Intake and Output for Last 24 Hours 11/03/19 11/04/19 11/05/19 23:59 23:59 23:59 Intake Total 262.09 / 302.67 854.85 / 854.85 Output Total 775 / 775 Balance 262.09 / -122.33 79.85 / 79.85 General: Alert, Cooperative, No apparent distress, - - Intubated, on mechanical ventilation. HEENT: Atraumatic, PERRLA, EOMI, Normocephalic Oral: Moist Mucosa, No Gingival or Mucosal Lesions/ Ulcerations Neck: Supple, No JVD, Negative Carotid Bruits, Trachea Midline, Thyroid Normal Size and Texture Lungs: Clear to auscultation, Normal air movement, No rhonchi, No wheeze, No rales, Diminished Cardiovascular: Regular rate, Regular Rhythm, Normal S1, Normal S2, PMI Normal Abdomen: Bowel Sounds Present, Soft, Non Tender, Non-Distended, No Hepato-splenomegaly Extremities: No clubbing, No cyanosis, No edema Skin: No rashes, No breakdown Lymphatic: No Cervical, Supraclavicular, or Inguinal Adenopathy Neurological: - - Moving all limbs. Psych/Mental Status: Normal Affect, Appropriate Laboratory Results 11/04/19 21:05: WBC 13.3 H, RBC 4.89, Hgb 13.5, Hct 41.0, MCV 83.8, MCH 27.6, MCHC 32.9, RDW Std Deviation 41.7, RDW Coeff of Norberto 13.6, Plt Count 280, MPV 10.5, Immature Gran % (Auto) 1.000 H, Neut % (Auto) 57.3, Lymph % (Auto) 34.0, [place] % (Auto) 6.2, Eos % (Auto) 1.1, Baso % (Auto) 0.4, Absolute Neuts (auto) 7.6, Absolute Lymphs (auto) 4.54 H, Nucleated RBC % 0 11/04/19 21:05: Sodium 144, Potassium 3.6, Chloride 111 H, Carbon Dioxide 26.0, Anion Gap 7, BUN 14, Creatinine 1.13, Estim Creat Clear Calc 96.46, Est GFR (MDRD) Af Amer 99, Est GFR (MDRD) Non-Af 81, BUN/Creatinine Ratio 12.4, Glucose 121 H, Calcium 8.4 L, Total Bilirubin 0.30, AST 24, ALT 43, Alkaline Phosphatase 94, Total Protein 7.7, Albumin 3.6, Globulin 4.1, Albumin/Globulin Ratio 0.9 11/04/19 21:05: Total Creatine Kinase 299, Triglycerides 276 H 11/04/19 21:25: PT 16.0 H, INR 1.3, APTT 30.7 11/04/19 21:25: Lactic Acid 1.1 11/05/19 04:15: WBC 18.2 H, RBC 5.15, Hgb 14.2, Hct 43.3, MCV 84.1, MCH 27.6, MCHC 32.8, RDW Std Deviation 41.5, RDW Coeff of Norberto 13.5, Plt Count 287, MPV 10.5, Immature Gran % (Auto) 0.700, Neut % (Auto) 83.8 H, Lymph % (Auto) 8.2 L, [place] % (Auto) 6.2, Eos % (Auto) 0.8, Baso % (Auto) 0.3, Absolute Neuts (auto) 15.3 H, Absolute Lymphs (auto) 1.49, Nucleated RBC % 0 11/05/19 04:15: Sodium 141, Potassium 3.8, Chloride 107, Carbon Dioxide 28.0, Anion Gap 6, BUN 12, Creatinine 1.20, Estim Creat Clear Calc 90.83, Est GFR (MDRD) Af Amer 92, Est GFR (MDRD) Non-Af 76, BUN/Creatinine Ratio 10.0, Glucose 130 H, Calcium 8.3 L, Phosphorus 3.3, Magnesium 1.9, Total Bilirubin 0.50, AST 20, ALT 43, Alkaline Phosphatase 87, Total Protein 7.5, Albumin 3.4, Globulin 4.1, Albumin/Globulin Ratio 0.8 L 11/05/19 05:31: Specimen Type ART, Sample Site L Radial, pH 7.38, Bicarbonate Actual 25.1, POC Total CO2 26, Base Excess 0, O2 Saturation 98, O2 % 40, ABG pCO2 43.0, ABG pO2 104 H, Eddy Test POS, Respiration Rate 14, O2 Delivery Device Vent, Minute Volume 7.00, Vent Mode A-C, Tidal Volume 500, POC PEEP 8, Blood Gas Notified Whom ICU MD, Blood Gas Notified Time 525 Clinical Impression(s) from Imaging Studies Chest X-Ray 11/04/19 20:50 IMPRESSION: Right mainstem intubation with nearly complete atelectasis of the left lung. Recommend immediate repositioning of the endotracheal tube. Electronically Signed: David Stoner MD at 21:43 EST , Service support , ADDENDUM: 11/04/19 2204 IMPRESSION: Right mainstem intubation with nearly complete atelectasis of the left lung. Recommend immediate repositioning of the endotracheal tube. N.B. : Jean Carlos Amaro MD, confirmed on 11/04/2019 21:57:14 (ET) that the referring physician received the results and does not require a verbal communication. Electronically Signed: David Stoner MD at 21:43 EST , Service support , Chest X-Ray 11/05/19 04:10 IMPRESSION: Withdrawal of the endotracheal tube above the debbie. Improved aeration to the left lung with persistent left lower lobe airspace disease. at 0510 Reported and signed by: Moe Langston MD Electronically Signed: Moe Langston MD at 5:09 EST Tel , Service support , Current Medications Acetaminophen (Tylenol Liquid) 650 mg GT Q4H PRN PRN PRN Reason: FEVER Last Admin: 11/05/19 00:53 Dose: 650 mg Documented by: Albuterol Sulfate (Ventolin Aerosols) 2.5 mg INHALATION Q4H.RT ZULEYMA Last Admin: 11/05/19 07:01 Dose: 2.5 mg Documented by: Chlorhexidine Gluconate () 15 ml PO BID ZULEYMA Last Admin: 11/04/19 23:30 Dose: 15 ml Documented by: Enoxaparin Sodium (Lovenox) 40 mg SC DAILY ZULEYMA Fentanyl Citrate (Sublimaze (100mcg Ampule)) 50 mcg IV Q2H PRN PRN PRN Reason: Pain >/= 4/10 or CPOT>/= 3/8 Lactated Ringer's () 1,000 mls @ 70 mls/hr IV .[id number] ZULEYMA Last Infusion: 11/05/19 06:00 Dose: 70 mls/hr Documented by: Propofol (Diprivan) 1,000 mg in 100 mls @ 5.52 mls/hr CONT INF .Q12H ZULEYMA; Protocol Last Titration: 11/05/19 08:00 Dose: 20 mcg/kg/min, 11 mls/hr Documented by: Sodium Chloride () 250 mls @ 15 mls/hr IV .[id number] PRN PRN Reason: Saline Flush Last Admin: 11/05/19 01:42 Dose: 15 mls/hr Documented by: Fentanyl () 100 mls @ 2.5 mls/hr IV UD ZULEYMA; Protocol Last Titration: 11/05/19 08:00 Dose: 25 mcg/hr, 2.5 mls/hr Documented by: Pantoprazole Sodium 40 mg/ (Sodium Chloride) 110 mls @ 330 mls/hr IV Q12 ZULEYMA Last Admin: 11/05/19 00:59 Dose: Not Given Documented by: Ampicillin Sodium/Sulbactam (Sodium 3 gm/ Sodium Chloride) 112 mls @ 150 mls/hr IV Q6 ZULEYMA Last Infusion: 11/05/19 07:19 Dose: Infused Documented by: Ondansetron HCl (Zofran) 4 mg IV Q6H PRN PRN PRN Reason: Nausea Sodium Chloride () 10 - 40 ml IV UD PRN PRN Reason: SALINE FLUSH Medical Necessity - Tobacco Use Smoking Status: Former smoker Assessment/Plan All Active Problems Acute respiratory failure with hypoxia (Acute) Aspiration pneumonia due to food (regurgitated) (Acute) Esophageal obstruction due to food impaction (Acute) This is a 29 years old male patient with no past medical history presented to the emergency room because of food obstructing his esophagus, underwent upper EGD which was aborted because patient became cyanotic, aspirated needed to be intubated and started mechanical ventilation and found to have aspiration pneumonia. #1 acute hypoxic respiratory failure: Secondary to aspiration pneumonia. Patient is on mechanical ventilation and sedation. He has been having spikes of low-grade fever, blood pressure and heart rate are maintained. He does not need any IV pressors. Routine blood work reviewed, revealed worsening leukocytosis, otherwise unremarkable. Lactic acid was normal. Blood and sputum cultures are pending. Broadcast Transmitter Operator on the case. Plan to continue same treatment, continue mechanical ventilation today. #2 acute aspiration pneumonia: He is on IV Unasyn. Still having spikes of low-grade fever, WBC is trending up. Blood and sputum cultures are pending. Plan as above. #3 foreign body esophagus/esophageal obstruction: Status post upper EGD but it was aborted because of cyanosis and acute respiratory failure. Endoscopy revealed large piece of food down in the stomach on repeat scope. Patient is on IV Protonix drip. General surgery on the case. #4 DVT prophylaxis: Subcu Lovenox. #5 GI prophylaxis: On IV Protonix. This note was generated with [employer] dictation software. It may contain incorrect words, spelling, and punctuation that were not noted in checking the note before signing. Code Visit Inpatient E&M: 07767 Subs Hosp L3
[2019-11-05] MEDS: Propofol 10MG/Ml 1,000 MG/100 ML Bottle 11 MG CONT INF ×2 (09:40→19:16)
[2019-11-05] MEDS: Chlorhexidine 15 ML PO ×2 (10:02→21:13)
[2019-11-05] MEDS: Enoxaparin 40 MG/0.4 ML Syringe SC (10:16)
[2019-11-06] VITALS (29 sets, daily range): BP systolic 90–137; BP diastolic 60–90; PULSE 56–88; RESP 14–22; TEMP 36.2–38.1; O2SAT 91–100
[2019-11-06] MEDS: Propofol 10MG/Ml 1,000 MG/100 ML Bottle 13.8 MG CONT INF (02:12)
--- NOTE | 2019-11-06 04:02 | NURSING ---
propofol and fentanyl held for ventilator wean trial.
[2019-11-06 04:26] LABS: Absolute Lymphocyte Count 3.14 X10^3/uL (0.83-4.51); Absolute Neutrophil Count 7.8 X10^3/uL (2.0-7.7); Basophil# 0.03 X10^3/uL; Basophil% 0.2 % (0-1); Eosinophil# 0.36 X10^3/uL; Eosinophils% 2.9 % (0-5); Hematocrit 42.6 % (40-54); Hemoglobin 14.2 g/dL (13.0-16.5); Lymphocyte # 3.14 X10^3/ul (4.0); Lymphocyte % 25.5 % (19-41); Mean Corp Hgb Conc 33.3 g/dL (32-36); Mean Corpuscular Hgb 28.1 pg (27.0-32.0); Mean Corpuscular Volume 84.4 fL (80-94); Mean Platelet Vol. 10.5 fl (6.2-12.0); Monocyte% 7.3 % (0-10); NRBC Flagged by Analyzer 0 % (0-5); Neutrophil # 7.84 X10^3/uL (2.7-7.7); Neutrophil % 63.8 % (47-70); Platelet Count 251 K/mm3 (150-450); RBC Distribution Width CV 13.8 % (11.6-14.6); RBC Distribution Width SD 42.5 fl (35.1-43.9); Red Blood Count 5.05 M/mm3 (4.6-6.2); White Blood Count 12.3 K/mm3 (4.4-11.0)
[2019-11-06 05:03] LABS: Anion Gap 6 (5-15); BUN 12 mg/dL (7-18); BUN/Creat Ratio 10.6 RATIO (10-20); Calcium,Total 8.2 mg/dL (8.5-10.1); Chloride 108 mmol/L (98-107); Creatinine, Serum 1.13 mg/dL (0.70-1.30); EST Glomerular Filtration Rate 81 mL/min (>60); Est Glom Filt Rate - Afr Amer 99 mL/min (>60); Estimated Creatinine Clearance 96.46 ml/min; Glucose 83 mg/dL (74-106); Potassium 3.2 mmol/L (3.5-5.1); Sodium Level 140 mmol/L (136-145)
--- NOTE | 2019-11-06 05:55 | RAD_ITS ---
HISTORY: ASPIRATION Comparison is from yesterday. Findings: The endotracheal tube terminates superimposed over the trachea, below the level of the clavicular heads, and above the debbie. Esophagogastric tube's tip is below the diaphragm. Lungs are left lower lobe airspace disease persists obscuring the left heart border Heart is is not overall enlarged, however, it is feasible that the left ventricle may be slightly dilated.. There is likely a small left pleural effusion. RAD/Chest 1 View (Portable) IMPRESSION: No change. Focal airspace disease within the left lower lobe likely represents pneumonia. at 0502 Reported and signed by: Moe Langston MD Electronically Signed: Moe Langston MD at 5:01 EST Tel , Service support ,
--- NOTE | 2019-11-06 06:48 | PCM.PN.INT ---
Subjective: The patient was seen and examined at the bedside this morning. Events from the last 24 hours have been reviewed. The patient is currently febrile, but remains hemodynamically stable. He is currently maintaining appropriate oxygen saturations on spontaneous mode mechanical ventilation with an FiO2 requirement of 30%. The patient has done well on his spontaneous breathing trial and is currently alert and appropriately interactive. Therefore, under my direct supervision, the patient was extubated this morning. Objective: The patient's most recent lab work, culture data and imaging studies have all been personally reviewed. General: Alert, Cooperative, No apparent distress, - - Remains intubated and mechanically ventilated. HEENT: Atraumatic, PERRLA, Normocephalic Oral: No Gingival or Mucosal Lesions/ Ulcerations, - - Endotracheal tube remains in place. Neck: Supple, No Nodes, Trachea Midline Lungs: No rhonchi, No wheeze, No rales, Diminished Cardiovascular: Regular rate, Regular Rhythm, Normal S1, Normal S2, No murmurs Abdomen: Bowel Sounds Present, Soft, Non Tender Extremities: No clubbing, No cyanosis, No edema Skin: No breakdown Musculoskeletal: No Tenderness to Palpation of Joints or Extremities, No Muscle Wasting Lymphatic: No Cervical, Supraclavicular, or Inguinal Adenopathy Neurological: Neuro grossly intact, - - Alert and following commands appropriately. Vital Signs Temp Pulse Resp BP Pulse Ox 100.5 F H 67 20 H 113/60 97 11/06/19 06:00 11/06/19 06:00 11/06/19 06:00 11/06/19 06:00 11/06/19 06:00 Oxygen Flow Rate (L/min) [1] 97 Oxygen Flow Rate (L/min) [4] 6 Oxygen Flow Rate (L/min) [3] 6 Oxygen Delivery Method [1] Nasal Cannula Oxygen Delivery Method [4] Room Air Oxygen Delivery Method [3] Nasal Cannula Oxygen Delivery Method Mechanical Ventilator Weight: 207 lb 3.752 oz Body Mass Index (BMI) 29.8 Intake and Output for Last 24 Hours 11/04/19 11/05/19 11/06/19 23:59 23:59 23:59 Intake Total 262.09 / 302.67 2063.31 / 2099.26 355.19 / 355.19 Output Total 1225 / 1575 500 / 500 Balance 262.09 / -122.33 838.31 / 524.26 -144.81 / -144.81 Labs (Last 48 Hours) 11/04/19 11/04/19 11/04/19 21:05 21:05 21:05 WBC 13.3 H RBC 4.89 Hgb 13.5 Hct 41.0 MCV 83.8 MCH 27.6 MCHC 32.9 RDW Std Deviation 41.7 RDW Coeff of Norberto 13.6 Plt Count 280 MPV 10.5 Immature Gran % (Auto) 1.000 H Neut % (Auto) 57.3 Lymph % (Auto) 34.0 [place] % (Auto) 6.2 Eos % (Auto) 1.1 Baso % (Auto) 0.4 Absolute Neuts (auto) 7.6 Absolute Lymphs (auto) 4.54 H Nucleated RBC % 0 PT INR APTT Specimen Type Sample Site pH Bicarbonate Actual POC Total CO2 Base Excess O2 Saturation O2 % ABG pCO2 ABG pO2 Eddy Test Respiration Rate O2 Delivery Device Minute Volume Vent Mode Tidal Volume POC PEEP Blood Gas Notified Whom Blood Gas Notified Time Sodium 144 Potassium 3.6 Chloride 111 H Carbon Dioxide 26.0 Anion Gap 7 BUN 14 Creatinine 1.13 Estim Creat Clear Calc 96.46 Est GFR (MDRD) Af Amer 99 Est GFR (MDRD) Non-Af 81 BUN/Creatinine Ratio 12.4 Glucose 121 H Lactic Acid Calcium 8.4 L Phosphorus Magnesium Total Bilirubin 0.30 AST 24 ALT 43 Alkaline Phosphatase 94 Total Creatine Kinase 299 Total Protein 7.7 Albumin 3.6 Globulin 4.1 Albumin/Globulin Ratio 0.9 Triglycerides 276 H 11/04/19 11/04/19 11/05/19 21:25 21:25 04:15 WBC 18.2 H RBC 5.15 Hgb 14.2 Hct 43.3 MCV 84.1 MCH 27.6 MCHC 32.8 RDW Std Deviation 41.5 RDW Coeff of Norberto 13.5 Plt Count 287 MPV 10.5 Immature Gran % (Auto) 0.700 Neut % (Auto) 83.8 H Lymph % (Auto) 8.[address] [place] % (Auto) 6.2 Eos % (Auto) 0.8 Baso % (Auto) 0.3 Absolute Neuts (auto) 15.3 H Absolute Lymphs (auto) 1.49 Nucleated RBC % 0 PT 16.0 H INR 1.3 APTT 30.7 Specimen Type Sample Site pH Bicarbonate Actual POC Total CO2 Base Excess O2 Saturation O2 % ABG pCO2 ABG pO2 Eddy Test Respiration Rate O2 Delivery Device Minute Volume Vent Mode Tidal Volume POC PEEP Blood Gas Notified Whom Blood Gas Notified Time Sodium Potassium Chloride Carbon Dioxide Anion Gap BUN Creatinine Estim Creat Clear Calc Est GFR (MDRD) Af Amer Est GFR (MDRD) Non-Af BUN/Creatinine Ratio Glucose Lactic Acid 1.1 Calcium Phosphorus Magnesium Total Bilirubin AST ALT Alkaline Phosphatase Total Creatine Kinase Total Protein Albumin Globulin Albumin/Globulin Ratio Triglycerides 11/05/19 11/05/19 11/06/19 04:15 05:31 04:15 WBC 12.3 H RBC 5.05 Hgb 14.2 Hct 42.6 MCV 84.4 MCH 28.1 MCHC 33.3 RDW Std Deviation 42.5 RDW Coeff of Norberto 13.8 Plt Count 251 MPV 10.5 Immature Gran % (Auto) 0.300 Neut % (Auto) 63.8 Lymph % (Auto) 25.5 [place] % (Auto) 7.3 Eos % (Auto) 2.9 Baso % (Auto) 0.2 Absolute Neuts (auto) 7.8 H Absolute Lymphs (auto) 3.14 Nucleated RBC % 0 PT INR APTT Specimen Type ART Sample Site L Radial pH 7.38 Bicarbonate Actual 25.1 POC Total CO2 26 Base Excess 0 O2 Saturation 98 O2 % 40 ABG pCO2 43.0 ABG pO2 104 H Eddy Test POS Respiration Rate 14 O2 Delivery Device Vent Minute Volume 7.00 Vent Mode A-C Tidal Volume 500 POC PEEP 8 Blood Gas Notified Whom ICU MD Blood Gas Notified Time 525 Sodium 141 Potassium 3.8 Chloride 107 Carbon Dioxide 28.0 Anion Gap 6 BUN 12 Creatinine 1.20 Estim Creat Clear Calc 90.83 Est GFR (MDRD) Af Amer 92 Est GFR (MDRD) Non-Af 76 BUN/Creatinine Ratio 10.0 Glucose 130 H Lactic Acid Calcium 8.3 L Phosphorus 3.3 Magnesium 1.9 Total Bilirubin 0.50 AST 20 ALT 43 Alkaline Phosphatase 87 Total Creatine Kinase Total Protein 7.5 Albumin 3.4 Globulin 4.1 Albumin/Globulin Ratio 0.8 L Triglycerides 11/06/19 04:15 WBC RBC Hgb Hct MCV MCH MCHC RDW Std Deviation RDW Coeff of Norberto Plt Count MPV Immature Gran % (Auto) Neut % (Auto) Lymph % (Auto) [place] % (Auto) Eos % (Auto) Baso % (Auto) Absolute Neuts (auto) Absolute Lymphs (auto) Nucleated RBC % PT INR APTT Specimen Type Sample Site pH Bicarbonate Actual POC Total CO2 Base Excess O2 Saturation O2 % ABG pCO2 ABG pO2 Eddy Test Respiration Rate O2 Delivery Device Minute Volume Vent Mode Tidal Volume POC PEEP Blood Gas Notified Whom Blood Gas Notified Time Sodium 140 Potassium 3.2 L Chloride 108 H Carbon Dioxide 26.0 Anion Gap 6 BUN 12 Creatinine 1.13 Estim Creat Clear Calc 96.46 Est GFR (MDRD) Af Amer 99 Est GFR (MDRD) Non-Af 81 BUN/Creatinine Ratio 10.6 Glucose 83 Lactic Acid Calcium 8.2 L Phosphorus Magnesium Total Bilirubin AST ALT Alkaline Phosphatase Total Creatine Kinase Total Protein Albumin Globulin Albumin/Globulin Ratio Triglycerides Microbiology 11/04/19 23:20 Sputum, Induced/Lukens Gram Stain - Final Clinical Impression(s) from Imaging Studies Chest X-Ray 11/04/19 20:50 IMPRESSION: Right mainstem intubation with nearly complete atelectasis of the left lung. Recommend immediate repositioning of the endotracheal tube. Electronically Signed: David Stoner MD at 21:43 EST , Service support , ADDENDUM: 11/04/19 2204 IMPRESSION: Right mainstem intubation with nearly complete atelectasis of the left lung. Recommend immediate repositioning of the endotracheal tube. N.B. : Jean Carlos Amaro MD, confirmed on 11/04/2019 21:57:14 (ET) that the referring physician received the results and does not require a verbal communication. Electronically Signed: David Stoner MD at 21:43 EST , Service support , Chest X-Ray 11/05/19 04:10 IMPRESSION: Withdrawal of the endotracheal tube above the dbebie. Improved aeration to the left lung with persistent left lower lobe airspace disease. at 0510 Reported and signed by: Moe Langston MD Electronically Signed: Moe Langston MD at 5:09 EST Tel , Service support , Chest X-Ray 11/06/19 05:55 IMPRESSION: No change. Focal airspace disease within the left lower lobe likely represents pneumonia. at 0502 Reported and signed by: Moe Langston MD Electronically Signed: Moe Langston MD at 5:01 EST Tel , Service support , Medical Necessity - Tobacco Use Smoking Status: Former smoker Assessment/Plan All Active Problems Acute respiratory failure with hypoxia (Acute) Aspiration pneumonia due to food (regurgitated) (Acute) Esophageal obstruction due to food impaction (Acute) RECOMMENDATIONS: 1. Proceed with a trial of extubation this morning. 2. Once extubated, wean supplemental oxygen to maintain saturations at or above 90%. 3. Encourage incentive spirometer use and mobilize patient as tolerated. 4. Continue Unasyn today. We will plan to transition to Augmentin beginning tomorrow. 5. Remove Patel catheter. 6. Bedside swallow evaluation and advance diet accordingly. 7. Continue PPI therapy. IMPRESSIONS: 1. Acute hypoxic respiratory failure secondary to aspiration pneumonia Patient in the left lateral decubitus position for an EGD during aspiration event. Although the patient has been febrile, he is on appropriate antimicrobial therapy for aspiration pneumonia. We will continue to monitor clinically. The patient was able to be extubated this morning. We will plan to continue to wean supplemental oxygen to maintain saturations at or above 90%. If the patient's diet is able to be advanced today following swallow evaluation, antimicrobials can be transitioned to Augmentin tomorrow to complete treatment course. 2. Esophageal obstruction Patient reportedly with GE junction circumferential irritation indicating probable obstruction. We will plan to continue PPI therapy given underlying gastritis noted on endoscopy. 3. Hypokalemia Electrolyte repletion as ordered. Recheck levels in the morning. TIME: 38 minutes of critical care time, independent of procedures, was spent addressing the patient's acute hypoxemic respiratory failure, aspiration pneumonia, esophageal obstruction, hypokalemia, review of all data and collaboration with the care team. ([id number]) Code Visit 9xxxx: [id number] Critical care first hour
--- NOTE | 2019-11-06 07:29 | PN_ITS ---
Patient Problems: Active and Suspected Problems Acute respiratory failure with hypoxia (Acute) Aspiration pneumonia due to food (regurgitated) (Acute) Esophageal obstruction due to food impaction (Acute) Reason for Visit: Acute hypoxic respiratory failure Subjective: Patient was weaned off the vent this a.m. Objective: GENERAL: cooperative HEENT: Atraumatic; EYES; Anicteric, Normal Conjunctiva NECK; supple, normal thyroid, RESPIRATORY: Diminished to auscultation CARDIOVASCULAR: Regular S1 S2, GI: soft, normoactive bowel sounds, : No Renal angle tenderness; EXTREMITIES: No edema, no clubbing, MUSCULOSKELETAL: no muscle waisting NEURO: Awake; no lateralizing signs. SKIN: No Rash PSYCH; Flat affect Vitals/I&O's: Vital Signs Temp Pulse Resp BP Pulse Ox 100.5 F H 67 20 H 113/60 97 11/06/19 06:00 11/06/19 06:00 11/06/19 06:00 11/06/19 06:00 11/06/19 06:00 Oxygen Flow Rate (L/min) [1] 97 Oxygen Flow Rate (L/min) [4] 6 Oxygen Flow Rate (L/min) [3] 6 Oxygen Delivery Method [1] Nasal Cannula Oxygen Delivery Method [4] Room Air Oxygen Delivery Method [3] Nasal Cannula Oxygen Delivery Method Mechanical Ventilator Weight: 94 kg Body Mass Index (BMI) 29.8 Intake and Output for Last 24 Hours 11/04/19 11/05/19 11/06/19 23:59 23:59 23:59 Intake Total 262.09 / 302.67 2063.31 / 2099.26 355.19 / 355.19 Output Total 1225 / 1575 500 / 500 Balance 262.09 / -122.33 838.31 / 524.26 -144.81 / -144.81 Microbiology Past 72 Hours 11/04/19 23:20 Sputum, Induced/Lukens Gram Stain - Final Laboratory Results 11/06/19 04:15: WBC 12.3 H, RBC 5.05, Hgb 14.2, Hct 42.6, MCV 84.4, MCH 28.1, MCHC 33.3, RDW Std Deviation 42.5, RDW Coeff of Norberto 13.8, Plt Count 251, MPV 10.5, Immature Gran % (Auto) 0.300, Neut % (Auto) 63.8, Lymph % (Auto) 25.5, Irwin % (Auto) 7.3, Eos % (Auto) 2.9, Baso % (Auto) 0.2, Absolute Neuts (auto) 7.8 H, Absolute Lymphs (auto) 3.14, Nucleated RBC % 0 11/06/19 04:15: Sodium 140, Potassium 3.2 L, Chloride 108 H, Carbon Dioxide 26.0, Anion Gap 6, BUN 12, Creatinine 1.13, Estim Creat Clear Calc 96.46, Est GFR (MDRD) Af Amer 99, Est GFR (MDRD) Non-Af 81, BUN/Creatinine Ratio 10.6, Glucose 83, Calcium 8.2 L Current Medications Acetaminophen (Tylenol Liquid) 650 mg GT Q4H PRN PRN PRN Reason: FEVER Last Admin: 11/05/19 21:22 Dose: 650 mg Documented by: Albuterol Sulfate (Ventolin Aerosols) 2.5 mg INHALATION Q2H PRN PRN PRN Reason: SHORTNESS OF BREATH Chlorhexidine Gluconate () 15 ml PO BID REPLACED BY [facility] Last Admin: 11/05/19 21:13 Dose: 15 ml Documented by: Enoxaparin Sodium (Lovenox) 40 mg SC DAILY REPLACED BY [facility] Last Admin: 11/05/19 10:16 Dose: 40 mg Documented by: Fentanyl Citrate (Sublimaze (100mcg Ampule)) 50 mcg IV Q2H PRN PRN PRN Reason: Pain >/= 4/10 or CPOT>/= 3/8 Propofol (Diprivan) 1,000 mg in 100 mls @ 5.64 mls/hr CONT INF .Q12H REPLACED BY [facility]; Protocol Last Titration: 11/06/19 06:00 Dose: 0 mcg/kg/min, 0 mls/hr Documented by: Sodium Chloride () 250 mls @ 15 mls/hr IV .[id number] PRN PRN Reason: Saline Flush Last Infusion: 11/05/19 17:36 Dose: 0 mls/hr Documented by: Fentanyl () 100 mls @ 2.5 mls/hr IV UD REPLACED BY [facility]; Protocol Last Titration: 11/06/19 06:00 Dose: 0 mcg/hr, 0 mls/hr Documented by: Pantoprazole Sodium 40 mg/ (Sodium Chloride) 110 mls @ 330 mls/hr IV Q12 ZULEYMA Last Infusion: 11/05/19 21:33 Dose: Infused Documented by: Ampicillin Sodium/Sulbactam (Sodium 3 gm/ Sodium Chloride) 112 mls @ 150 mls/hr IV Q6 ZULEYMA Last Infusion: 11/06/19 05:53 Dose: Infused Documented by: Potassium Chloride () 10 meq in 100 mls @ 100 mls/hr IV BOLUS Q1H ZULEYMA Stop: 11/06/19 10:59 Ondansetron HCl (Zofran) 4 mg IV Q6H PRN PRN PRN Reason: Nausea Sodium Chloride () 10 - 40 ml IV UD PRN PRN Reason: SALINE FLUSH STROKE Vital Signs/Narrative: Vital Signs Temp Pulse Resp BP Pulse Ox 11/06/19 06:00 100.5 F H 67 20 H 113/60 97 11/06/19 05:37 15 11/06/19 05:35 85 15 99 11/06/19 05:00 100.3 F H 69 17 108/66 97 11/06/19 04:31 72 17 98 11/06/19 04:00 99.6 F H 66 14 116/79 93 Medical Necessity - Tobacco Use Smoking Status: Former smoker Assessment/Plan All Active Problems Acute respiratory failure with hypoxia (Acute) Aspiration pneumonia due to food (regurgitated) (Acute) Esophageal obstruction due to food impaction (Acute) Patient is a 29-year-old gentleman admitted with food impaction. Underwent EGD with attempt to remove the impacted food patient became cyanotic aspirated resulting in patient being intubated. 1. Acute hypoxic respiratory failure ?Secondary to aspiration pneumonia managed on the vent weaned off on 11/06/2019. 2. Aspiration pneumonia ?Patient is on Unasyn cultures have remained negative to date 3. Esophageal obstruction ?Secondary to impacted food. Attempt at EGD initially unsuccessful which was complicated by acute hypoxic respiratory failure. Repeat EGD once patient was medically stable demonstrated a large piece of steak in the stomach 4. Obesity with BMI of 30.6 ?Weight loss advised 5. DVT prophylaxis ?SC Lovenox Code Visit Inpatient E&M: 33000 Subs Hosp L2
[2019-11-06] MEDS: Potassium Chloride 10mEq/100mL 10 MEQ/100 ML IV.SOLN. 100 MEQ IV BOLUS ×4 (07:49→11:16)
[2019-11-06] MEDS: 0.9% Saline Lock 10 ML Syringe IV ×2 (07:49→12:18)
--- NOTE | 2019-11-06 08:12 | PCM.PN.SRG ---
Patient Problems: Active and Suspected Problems Acute respiratory failure with hypoxia (Acute) Aspiration pneumonia due to food (regurgitated) (Acute) Esophageal obstruction due to food impaction (Acute) Subjective: Patient denies any abdominal pain and is alert on the vent. Plan for extubation this morning. - Physical Exam Vitals/I&O's: Vital Signs Temp Pulse Resp BP Pulse Ox 100.5 F H 77 20 H 113/60 97 11/06/19 06:00 11/06/19 07:38 11/06/19 06:00 11/06/19 06:00 11/06/19 06:00 Oxygen Flow Rate (L/min) [1] 97 Oxygen Flow Rate (L/min) [4] 6 Oxygen Flow Rate (L/min) [3] 6 Oxygen Flow Rate (L/min) 2 Oxygen Delivery Method [1] Nasal Cannula Oxygen Delivery Method [4] Room Air Oxygen Delivery Method [3] Nasal Cannula Oxygen Delivery Method Nasal Cannula Weight: 207 lb 3.752 oz Body Mass Index (BMI) 29.8 Intake and Output for Last 24 Hours 11/04/19 11/05/19 11/06/19 23:59 23:59 23:59 Intake Total 262.09 / 302.67 2063.31 / 2099.26 355.19 / 355.19 Output Total 1225 / 1575 500 / 500 Balance 262.09 / -122.33 838.31 / 524.26 -144.81 / -144.81 General: Alert, Cooperative, No apparent distress, - - ET tube and OG tube in place Cardiovascular: Regular rate Abdomen: Soft, Non Tender, Non-Distended Microbiology Past 72 Hours 11/04/19 23:20 Sputum, Induced/Lukens Gram Stain - Final Laboratory Results 11/06/19 04:15: WBC 12.3 H, RBC 5.05, Hgb 14.2, Hct 42.6, MCV 84.4, MCH 28.1, MCHC 33.3, RDW Std Deviation 42.5, RDW Coeff of Norberto 13.8, Plt Count 251, MPV 10.5, Immature Gran % (Auto) 0.300, Neut % (Auto) 63.8, Lymph % (Auto) 25.5, Edwards % (Auto) 7.3, Eos % (Auto) 2.9, Baso % (Auto) 0.2, Absolute Neuts (auto) 7.8 H, Absolute Lymphs (auto) 3.14, Nucleated RBC % 0 11/06/19 04:15: Sodium 140, Potassium 3.2 L, Chloride 108 H, Carbon Dioxide 26.0, Anion Gap 6, BUN 12, Creatinine 1.13, Estim Creat Clear Calc 96.46, Est GFR (MDRD) Af Amer 99, Est GFR (MDRD) Non-Af 81, BUN/Creatinine Ratio 10.6, Glucose 83, Calcium 8.2 L Current Medications Acetaminophen (Tylenol Liquid) 650 mg GT Q4H PRN PRN PRN Reason: FEVER Last Admin: 11/05/19 21:22 Dose: 650 mg Documented by: Albuterol Sulfate (Ventolin Aerosols) 2.5 mg INHALATION Q2H PRN PRN PRN Reason: SHORTNESS OF BREATH Enoxaparin Sodium (Lovenox) 40 mg SC DAILY COUNTS INCLUDE 234 BEDS AT THE [facility] Last Admin: 11/05/19 10:16 Dose: 40 mg Documented by: Fentanyl Citrate (Sublimaze (100mcg Ampule)) 50 mcg IV Q2H PRN PRN PRN Reason: Pain >/= 4/10 or CPOT>/= 3/8 Sodium Chloride () 250 mls @ 15 mls/hr IV .[id number] PRN PRN Reason: Saline Flush Last Infusion: 11/05/19 17:36 Dose: 0 mls/hr Documented by: Pantoprazole Sodium 40 mg/ (Sodium Chloride) 110 mls @ 330 mls/hr IV Q12 COUNTS INCLUDE 234 BEDS AT THE [facility] Last Infusion: 11/05/19 21:33 Dose: Infused Documented by: Ampicillin Sodium/Sulbactam (Sodium 3 gm/ Sodium Chloride) 112 mls @ 150 mls/hr IV Q6 ZULEYMA Last Infusion: 11/06/19 05:53 Dose: Infused Documented by: Potassium Chloride () 10 meq in 100 mls @ 100 mls/hr IV BOLUS Q1H COUNTS INCLUDE 234 BEDS AT THE [facility] Stop: 11/06/19 10:59 Last Admin: 11/06/19 07:49 Dose: 100 mls/hr Documented by: Ondansetron HCl (Zofran) 4 mg IV Q6H PRN PRN PRN Reason: Nausea Sodium Chloride () 10 - 40 ml IV UD PRN PRN Reason: SALINE FLUSH Last Admin: 11/06/19 07:49 Dose: 20 ml Documented by: Medical Necessity - Tobacco Use Smoking Status: Former smoker Assessment/Plan All Active Problems Acute respiratory failure with hypoxia (Acute) Aspiration pneumonia due to food (regurgitated) (Acute) Esophageal obstruction due to food impaction (Acute) 29-year-old male with esophageal foreign body?steak, aspiration during EGD 1. Extubate this morning per ICU 2. Continue IV Unasyn due to aspiration 3. IV Protonix while patient go home on Protonix 40 mg p.o. twice daily x1 month then daily after. Fartun Shepherd M.D. Pager: [phone] [facility] [address] [place] [address], [facility], [address] [place] [address] Office: [phone]
--- NOTE | 2019-11-06 09:53 | CASEMGMT ---
RN CM Assessment Presentation: Esophageal Obstruction Intro role of CM and purpose of RN CM assessment to patient in room. Demographics, PCP and Pharmacy verified. Pt is independent, no care needs identified. Pt plans to return to work when medically cleared. PCP: Dr. Johnson Specialists: Dr. Shepherd [facility]erred [facility]acy: [facility] Insurance: Gertrude Prescription Benefit: yes LNOK: , Trisha Eugene Living Arrangements: Lives independently. Denies care needs. Transportation: drives DME: none Patient DC goals: Home DC PLAN: Home. No DC needs identified. Gisell FORTEN RN ACM
[2019-11-06] MEDS: Enoxaparin 40 MG/0.4 ML Syringe SC (09:55)
[2019-11-06] MEDS: Acetaminophen 325 MG Tablet 650 MG PO (12:14)
[2019-11-06] MEDS: Ondansetron 4 MG/2 ML Vial IV (12:18)
[2019-11-06] MEDS: Ibuprofen 600 MG Tablet PO (19:46)
--- NOTE | 2019-11-06 20:52 | NURSING ---
Pt very unsteady. Pt out of chair and walked to the hallway and then back to bed. Pt had to use a walker. Pt used the IS.
[2019-11-07] MEDS: Ibuprofen 600 MG Tablet PO (05:02)
[2019-11-07 05:10] VITALS: BP 117/78; PULSE 68; RESP 17; TEMP 37.4; O2SAT 95
--- NOTE | 2019-11-07 06:53 | PCM.PN.PUL ---
Subjective: The patient was seen and examined at the bedside this morning. Events from the last 24 hours have been reviewed. The patient currently has a low-grade fever with a T-max of 100.5 ?F over the last 24 hours. He remains hemodynamically stable on room air. The patient has done well clinically following extubation and transfer out of the intensive care unit yesterday. Objective: The patient's most recent lab work, culture data and imaging studies have all been personally reviewed. Sputum culture appears to be normal respiratory tez. Blood cultures are pending. - Physical Exam Vitals/I&O's: Vital Signs Temp Pulse Resp BP Pulse Ox 99.3 F H 68 17 117/78 95 11/07/19 05:10 11/07/19 05:10 11/07/19 05:10 11/07/19 05:10 11/07/19 05:10 Oxygen Flow Rate (L/min) [1] 97 Oxygen Flow Rate (L/min) [4] 6 Oxygen Flow Rate (L/min) [3] 6 Oxygen Flow Rate (L/min) 2 Oxygen Delivery Method [1] Nasal Cannula Oxygen Delivery Method [4] Room Air Oxygen Delivery Method [3] Nasal Cannula Oxygen Delivery Method Room Air Weight: 200 lb 6.403 oz Body Mass Index (BMI) 29.8 Intake and Output for Last 24 Hours 11/05/19 11/06/19 11/07/19 23:59 23:59 23:59 Intake Total 2063.31 / 2099.26 2814.44 / 2814.44 361.75 / 361.75 Output Total 1225 / 1575 1575 / 1575 Balance 838.31 / 524.26 1239.44 / 1239.44 361.75 / 361.75 General: Alert, Cooperative, No apparent distress HEENT: Atraumatic, PERRLA, Normocephalic Oral: No Gingival or Mucosal Lesions/ Ulcerations Neck: Supple, No Nodes, Trachea Midline Lungs: Normal air movement, No rhonchi, No wheeze, No rales Cardiovascular: Regular rate, Regular Rhythm, Normal S1, Normal S2, No murmurs Abdomen: Bowel Sounds Present, Soft, Non Tender Extremities: No clubbing, No cyanosis, No edema Skin: No breakdown Musculoskeletal: No Tenderness to Palpation of Joints or Extremities, No Muscle Wasting Lymphatic: No Cervical, Supraclavicular, or Inguinal Adenopathy Neurological: Cranial nerves II-XII grossly intact, Neuro grossly intact Psych/Mental Status: Normal Affect, Appropriate Labs (Last 48 Hours) 11/06/19 11/06/19 04:15 04:15 WBC 12.3 H RBC 5.05 Hgb 14.2 Hct 42.6 MCV 84.4 MCH 28.1 MCHC 33.3 RDW Std Deviation 42.5 RDW Coeff of Norberto 13.8 Plt Count 251 MPV 10.5 Immature Gran % (Auto) 0.300 Neut % (Auto) 63.8 Lymph % (Auto) 25.5 [place] % (Auto) 7.3 Eos % (Auto) 2.9 Baso % (Auto) 0.2 Absolute Neuts (auto) 7.8 H Absolute Lymphs (auto) 3.14 Nucleated RBC % 0 Sodium 140 Potassium 3.2 L Chloride 108 H Carbon Dioxide 26.0 Anion Gap 6 BUN 12 Creatinine 1.13 Estim Creat Clear Calc 96.46 Est GFR (MDRD) Af Amer 99 Est GFR (MDRD) Non-Af 81 BUN/Creatinine Ratio 10.6 Glucose 83 Calcium 8.2 L Microbiology 11/04/19 23:20 Sputum, Induced/Lukens Gram Stain - Final 11/04/19 23:20 Sputum, Induced/Lukens Respiratory Culture - Preliminary Appears to be normal respiratory tez. Further studies to follow. Clinical Impression(s) from Imaging Studies Chest X-Ray 11/04/19 20:50 IMPRESSION: Right mainstem intubation with nearly complete atelectasis of the left lung. Recommend immediate repositioning of the endotracheal tube. Electronically Signed: David Stoner MD at 21:43 EST , Service support , ADDENDUM: 11/04/19 2204 IMPRESSION: Right mainstem intubation with nearly complete atelectasis of the left lung. Recommend immediate repositioning of the endotracheal tube. N.B. : Jean Carlos Amaro MD, confirmed on 11/04/2019 21:57:14 (ET) that the referring physician received the results and does not require a verbal communication. Electronically Signed: David Stoner MD at 21:43 EST , Service support , Chest X-Ray 11/05/19 04:10 IMPRESSION: Withdrawal of the endotracheal tube above the debbie. Improved aeration to the left lung with persistent left lower lobe airspace disease. at 0510 Reported and signed by: Moe Langston MD Electronically Signed: Moe Langston MD at 5:09 EST Tel , Service support , Chest X-Ray 11/06/19 05:55 IMPRESSION: No change. Focal airspace disease within the left lower lobe likely represents pneumonia. at 0502 Reported and signed by: Moe Langston MD Electronically Signed: Moe Langston MD at 5:01 EST Tel , Service support , Current Medications Acetaminophen (Tylenol) 650 mg PO Q4H PRN PRN PRN Reason: Pain Score 1-10/10 Last Admin: 11/06/19 12:14 Dose: 650 mg Documented by: Albuterol Sulfate (Ventolin Aerosols) 2.5 mg INHALATION Q2H PRN PRN PRN Reason: SHORTNESS OF BREATH Enoxaparin Sodium (Lovenox) 40 mg SC DAILY [facility] Last Admin: 11/06/19 09:55 Dose: 40 mg Documented by: Sodium Chloride () 250 mls @ 15 mls/hr IV .[id number] PRN PRN Reason: Saline Flush Last Infusion: 11/07/19 05:36 Dose: 15 mls/hr Documented by: Pantoprazole Sodium 40 mg/ (Sodium Chloride) 110 mls @ 330 mls/hr IV Q12 ZULEYMA Last Infusion: 11/06/19 21:21 Dose: Infused Documented by: Ampicillin Sodium/Sulbactam (Sodium 3 gm/ Sodium Chloride) 112 mls @ 150 mls/hr IV Q6 ZULEYMA Last Infusion: 11/07/19 05:47 Dose: Infused Documented by: Ibuprofen (Motrin) 600 mg PO TID ZULEYMA Last Admin: 11/07/19 05:02 Dose: 600 mg Documented by: Ondansetron HCl (Zofran) 4 mg IV Q6H PRN PRN PRN Reason: Nausea Last Admin: 11/06/19 12:18 Dose: 4 mg Documented by: Sodium Chloride () 10 - 40 ml IV UD PRN PRN Reason: SALINE FLUSH Last Admin: 11/06/19 12:18 Dose: 10 ml Documented by: Medical Necessity - Tobacco Use Smoking Status: Former smoker Assessment/Plan All Active Problems Acute respiratory failure with hypoxia (Acute) Aspiration pneumonia due to food (regurgitated) (Acute) Esophageal obstruction due to food impaction (Acute) RECOMMENDATIONS: 1. Okay from my perspective to transition from IV antibiotics to Augmentin to complete a 7-day treatment course. 2. Continue PPI as ordered. 3. Recheck potassium level. 4. Given the patient's lack of further pulmonary issues, will sign off. Please call with any additional questions. IMPRESSIONS: 1. Acute hypoxic respiratory failure secondary to aspiration pneumonia Patient in the left lateral decubitus position for an EGD during aspiration event. Although the patient has been febrile, he is on appropriate antimicrobial therapy for aspiration pneumonia. We will continue to monitor clinically. The patient was able to be extubated without complication. He has been maintaining appropriate oxygen saturations on room air since that time. From my perspective, the IV antibiotics can be transitioned to Augmentin with plans to complete a 7-day treatment course. 2. Esophageal obstruction Patient reportedly with GE junction circumferential irritation indicating probable obstruction. We will plan to continue PPI therapy given underlying gastritis noted on endoscopy. This note was generated with [employer] dictation software. It may contain incorrect words, spelling, and punctuation that were not noted in checking the note before signing. Code Visit Inpatient E&M: 51956 Subs Hosp L2
--- NOTE | 2019-11-07 07:35 | DS.PCM_ITS ---
Discharge Date and Diagnosis - Problem List Patient Problems: Active and Suspected Problems Acute respiratory failure with hypoxia (Acute) Aspiration pneumonia due to food (regurgitated) (Acute) Esophageal obstruction due to food impaction (Acute) Date of Admission: 11/04/19 Date of Discharge: 11/07/19 - Primary Discharge Diagnosis Active and Suspected Problems Acute respiratory failure with hypoxia (Acute) Aspiration pneumonia due to food (regurgitated) (Acute) Esophageal obstruction due to food impaction (Acute) Hospital Course and Treatment Imaging Results: Clinical Impression(s) from Imaging Studies Chest X-Ray 11/04/19 20:50 IMPRESSION: Right mainstem intubation with nearly complete atelectasis of the left lung. Recommend immediate repositioning of the endotracheal tube. Electronically Signed: David Stoner MD at 21:43 EST , Service support , ADDENDUM: 11/04/194 IMPRESSION: Right mainstem intubation with nearly complete atelectasis of the left lung. Recommend immediate repositioning of the endotracheal tube. N.B. : Jean Carlos Amaro MD, confirmed on 11/04/2019 21:57:14 (ET) that the referring physician received the results and does not require a verbal communication. Electronically Signed: David Stoner MD at 21:43 EST , Service support , Chest X-Ray 11/05/19 04:10 IMPRESSION: Withdrawal of the endotracheal tube above the debbie. Improved aeration to the left lung with persistent left lower lobe airspace disease. at 0510 Reported and signed by: Moe Langston MD Electronically Signed: Moe Langston MD at 5:09 EST Tel , Service support , Chest X-Ray 11/06/19 05:55 IMPRESSION: No change. Focal airspace disease within the left lower lobe likely represents pneumonia. at 0502 Reported and signed by: Moe Langston MD Electronically Signed: Moe Langston MD at 5:01 EST Tel , Service support , Procedures: EGD Summary of Care Provided: Patient is a 29-year-old gentleman admitted with food impaction. Underwent EGD with attempt to remove the impacted food patient became cyanotic aspirated resulting in patient being intubated. 1. Acute hypoxic respiratory failure ?Secondary to aspiration pneumonia managed on the vent weaned off on 11/06/2019. 2. Aspiration pneumonia ?Patient is on Unasyn cultures have remained negative to date. Patient was discharged on Augmentin for 7 days. 3. Esophageal obstruction ?Secondary to impacted food. Attempt at EGD initially unsuccessful which was complicated by acute hypoxic respiratory failure. Repeat EGD once patient was medically stable demonstrated a large piece of steak in the stomach. Patient was placed on Protonix prescription written on discharge 4. Obesity with BMI of 30.6 ?Weight loss advised 5. DVT prophylaxis ?SC Lovenox Patient Problems: Active and Suspected Problems Acute respiratory failure with hypoxia (Acute) Aspiration pneumonia due to food (regurgitated) (Acute) Esophageal obstruction due to food impaction (Acute) - Physical Exam Vitals/I&O's: Vital Signs Temp Pulse Resp BP Pulse Ox 99.3 F H 68 17 117/78 95 11/07/19 05:10 11/07/19 05:10 11/07/19 05:10 11/07/19 05:10 11/07/19 05:10 Oxygen Flow Rate (L/min) [1] 97 Oxygen Flow Rate (L/min) [4] 6 Oxygen Flow Rate (L/min) [3] 6 Oxygen Flow Rate (L/min) 2 Oxygen Delivery Method [1] Nasal Cannula Oxygen Delivery Method [4] Room Air Oxygen Delivery Method [3] Nasal Cannula Oxygen Delivery Method Room Air Weight: 90.9 kg Body Mass Index (BMI) 29.8 Intake and Output for Last 24 Hours 11/05/19 11/06/19 11/07/19 23:59 23:59 23:59 Intake Total 2063.31 / 2099.26 2814.44 / 2814.44 361.75 / 361.75 Output Total 1225 / 1575 1575 / 1575 Balance 838.31 / 524.26 1239.44 / 1239.44 361.75 / 361.75 General: Alert HEENT: Atraumatic Neck: Supple Lungs: Clear to auscultation Cardiovascular: Regular rate, Regular Rhythm Neurological: Neuro grossly intact Psych/Mental Status: Normal Affect Microbiology Past 72 Hours 11/04/19 23:20 Sputum, Induced/Lukens Gram Stain - Final 11/04/19 23:20 Sputum, Induced/Lukens Respiratory Culture - Preliminary Appears to be normal respiratory tez. Further studies to follow. Laboratory Results 11/07/19 07:22: Sodium Pending, Potassium Pending, Chloride Pending, Carbon Dioxide Pending, Anion Gap Pending, BUN Pending, Creatinine Pending, Est GFR (MDRD) Af Amer Pending, Est GFR (MDRD) Non-Af Pending, BUN/Creatinine Ratio Pending, Glucose Pending, Calcium Pending, Magnesium Pending Current Medications Acetaminophen (Tylenol) 650 mg PO Q4H PRN PRN PRN Reason: Pain Score 1-10/10 Last Admin: 11/06/19 12:14 Dose: 650 mg Documented by: Albuterol Sulfate (Ventolin Aerosols) 2.5 mg INHALATION Q2H PRN PRN PRN Reason: SHORTNESS OF BREATH Enoxaparin Sodium (Lovenox) 40 mg SC DAILY [facility] Last Admin: 11/06/19 09:55 Dose: 40 mg Documented by: Sodium Chloride () 250 mls @ 15 mls/hr IV .[id number] PRN PRN Reason: Saline Flush Last Infusion: 11/07/19 05:36 Dose: 15 mls/hr Documented by: Pantoprazole Sodium 40 mg/ (Sodium Chloride) 110 mls @ 330 mls/hr IV Q12 [facility] Last Infusion: 11/06/19 21:21 Dose: Infused Documented by: Ampicillin Sodium/Sulbactam (Sodium 3 gm/ Sodium Chloride) 112 mls @ 150 mls/hr IV Q6 [facility] Last Infusion: 11/07/19 05:47 Dose: Infused Documented by: Ibuprofen (Motrin) 600 mg PO TID [facility] Last Admin: 11/07/19 05:02 Dose: 600 mg Documented by: Ondansetron HCl (Zofran) 4 mg IV Q6H PRN PRN PRN Reason: Nausea Last Admin: 11/06/19 12:18 Dose: 4 mg Documented by: Sodium Chloride () 10 - 40 ml IV UD PRN PRN Reason: SALINE FLUSH Last Admin: 11/06/19 12:18 Dose: 10 ml Documented by: Discharge Diet: Soft diet Discharge Activity: Return to Normal Activity Home Medications: Medications to take at Discharge Oxaprozin [Daypro] 600 mg PO BID 11/04/19 Amoxicillin/Potassium Clav [Augmentin 500-125 Tablet] 1 ea PO BID #14 tab 11/07/19 Pantoprazole Sodium [Protonix] 40 mg PO DAILY #60 tab 11/07/19 Following Prescrptions Were Given to Patient: Amoxicillin/Potassium Clav [Augmentin 500-125 Tablet] 1 ea PO BID #14 tab Transmission Status: Pending to [id number] Pantoprazole Sodium [Protonix] 40 mg PO DAILY #60 tab Transmission Status: Pending to [id number] Primary Care Physician: Lisa Johnson MD [Primary Care Provider] - Disposition: Home Minutes spent on discharge:: 35 Patient Condition:: Stable Medical Necessity - Tobacco Use Smoking Status: Former smoker Meaningful Use Info Meaningful Use Diagnoses (Choose all that apply): None applicable Code Visit Inpatient E&M: 44483 Disch Hosp
[2019-11-07 08:00] LABS: Anion Gap 5 (5-15); BUN 11 mg/dL (7-18); BUN/Creat Ratio 12.8 RATIO (10-20); Calcium,Total 8.1 mg/dL (8.5-10.1); Chloride 110 mmol/L (98-107); Creatinine, Serum 0.86 mg/dL (0.70-1.30); EST Glomerular Filtration Rate 112 mL/min (>60); Est Glom Filt Rate - Afr Amer 136 mL/min (>60); Estimated Creatinine Clearance 126.74 ml/min; Glucose 83 mg/dL (74-106); Magnesium 2.2 mg/dL (1.6-2.6); Potassium 3.6 mmol/L (3.5-5.1); Sodium Level 140 mmol/L (136-145)
--- NOTE | 2019-11-07 08:16 | PCM.DC ---
- Discharge Diagnoses Current Active Problems: Current Active and Chronic Problems Acute respiratory failure with hypoxia (Acute) Aspiration pneumonia due to food (regurgitated) (Acute) Esophageal obstruction due to food impaction (Acute) You will use the following diet at home:: No restrictions Your food should be the consistency of: Regular, Soft (bite-sized & easy to chew/swallow) Allergies/Adverse Reactions: Allergies Fish Containing Products Allergy (Verified 11/04/19 18:57) Hives Medications to take at Discharge Oxaprozin [Daypro] 600 mg PO BID 11/04/19 Amoxicillin/Potassium Clav [Augmentin 500-125 Tablet] 1 ea PO BID #14 tab 11/07/19 Pantoprazole Sodium [Protonix] 40 mg PO DAILY #60 tab 11/07/19 The following prescriptions were given: Amoxicillin/Potassium Clav [Augmentin 500-125 Tablet] 1 ea PO BID #14 tab Transmission Status: Pending to [facility]/pharmacy #[id number] Pantoprazole Sodium [Protonix] 40 mg PO DAILY #60 tab Transmission Status: Pending to [facility]/pharmacy #[id number] Primary Care Physician: Lisa Johnson MD [Primary Care Provider] - Please follow up with your Primary Care Physician in: in 5-7 days Test Results: Test results from this visit will be discussed in further detail at your follow-up appointment, if applicable. Please Follow Up With: Fartun Shepherd MD When: in 2-3 weeks Proposed Discharge Date: 11/07/19
[2019-11-07 08:17] VITALS: BP 126/77; PULSE 74; RESP 18; TEMP 36.9; O2SAT 95
--- NOTE | 2019-11-07 09:13 | PN.SURG_ITS ---
Patient Problems: Active and Suspected Problems Acute respiratory failure with hypoxia (Acute) Aspiration pneumonia due to food (regurgitated) (Acute) Esophageal obstruction due to food impaction (Acute) Subjective: Patient states he only has some pain with very deep breaths which has been improving every day. - Physical Exam Vitals/I&O's: Vital Signs Temp Pulse Resp BP Pulse Ox 99.3 F H 68 17 117/78 95 11/07/19 05:10 11/07/19 05:10 11/07/19 05:10 11/07/19 05:10 11/07/19 05:10 Oxygen Flow Rate (L/min) [1] 97 Oxygen Flow Rate (L/min) [4] 6 Oxygen Flow Rate (L/min) [3] 6 Oxygen Flow Rate (L/min) 2 Oxygen Delivery Method [1] Nasal Cannula Oxygen Delivery Method [4] Room Air Oxygen Delivery Method [3] Nasal Cannula Oxygen Delivery Method Room Air Weight: 200 lb 6.403 oz Body Mass Index (BMI) 29.8 Intake and Output for Last 24 Hours 11/05/19 11/06/19 11/07/19 23:59 23:59 23:59 Intake Total 2063.31 / 2099.26 2814.44 / 2814.44 361.75 / 361.75 Output Total 1225 / 1575 1575 / 1575 Balance 838.31 / 524.26 1239.44 / 1239.44 361.75 / 361.75 General: Alert, Oriented x3, Cooperative, No apparent distress HEENT: Atraumatic Lungs: Normal air movement Cardiovascular: Regular rate Abdomen: Soft, Non Tender, Non-Distended Microbiology Past 72 Hours 11/05/19 01:17 Blood Culture (Wb) - Left Hand Blood Culture - Preliminary No growth in 48 hours. 11/05/19 00:40 Blood Culture (Wb) - Anticubital Left Blood Culture - Preliminary No growth in 48 hours. 11/04/19 23:20 Sputum, Induced/Lukens Gram Stain - Final 11/04/19 23:20 Sputum, Induced/Lukens Respiratory Culture - Preliminary Appears to be normal respiratory tez. Further studies to follow. Laboratory Results 11/07/19 07:22: Sodium 140, Potassium 3.6, Chloride 110 H, Carbon Dioxide 25.0, Anion Gap 5, BUN 11, Creatinine 0.86, Estim Creat Clear Calc 126.74, Est GFR (MDRD) Af Amer 136, Est GFR (MDRD) Non-Af 112, BUN/Creatinine Ratio 12.8, Glucose 83, Calcium 8.1 L, Magnesium 2.2 Current Medications Acetaminophen (Tylenol) 650 mg PO Q4H PRN PRN PRN Reason: Pain Score 1-10/10 Last Admin: 11/06/19 12:14 Dose: 650 mg Documented by: Albuterol Sulfate (Ventolin Aerosols) 2.5 mg INHALATION Q2H PRN PRN PRN Reason: SHORTNESS OF BREATH Enoxaparin Sodium (Lovenox) 40 mg SC DAILY [facility] Last Admin: 11/07/19 08:39 Dose: Not Given Documented by: Sodium Chloride () 250 mls @ 15 mls/hr IV .[id number] PRN PRN Reason: Saline Flush Last Infusion: 11/07/19 05:36 Dose: 15 mls/hr Documented by: Pantoprazole Sodium 40 mg/ (Sodium Chloride) 110 mls @ 330 mls/hr IV Q12 [facility] Last Admin: 11/07/19 08:40 Dose: Not Given Documented by: Ampicillin Sodium/Sulbactam (Sodium 3 gm/ Sodium Chloride) 112 mls @ 150 mls/hr IV Q6 [facility] Last Infusion: 11/07/19 05:47 Dose: Infused Documented by: Ibuprofen (Motrin) 600 mg PO TID [facility] Last Admin: 11/07/19 05:02 Dose: 600 mg Documented by: Ondansetron HCl (Zofran) 4 mg IV Q6H PRN PRN PRN Reason: Nausea Last Admin: 11/06/19 12:18 Dose: 4 mg Documented by: Sodium Chloride () 10 - 40 ml IV UD PRN PRN Reason: SALINE FLUSH Last Admin: 11/06/19 12:18 Dose: 10 ml Documented by: Medical Necessity - Tobacco Use Smoking Status: Former smoker Assessment/Plan All Active Problems Acute respiratory failure with hypoxia (Acute) Aspiration pneumonia due to food (regurgitated) (Acute) Esophageal obstruction due to food impaction (Acute) 29-year-old male with esophageal foreign body?steak, aspiration during EGD 1. Extubated yesterday, doing well on room air DC home today. 2. Change to Augmentin for p.o. antibiotics. 3. recommend Protonix 40 mg p.o. twice daily x1 month then patient would likely need Protonix 40 mg daily. Fartun Shepherd M.D. Pager: [phone] [facility] [address] [place] [address], [address] [place] [address] Office: [phone]
== END 2019-11-07 10:27 | disposition home or self-care (01) | DRG 208 ==
LOC: ED 20:54 → ICU 11-05 07:15 → MS3 11-06 16:52
PROVIDERS: Internal Medicine Critical Care Medicine; Surgery; Admitting Provider Internal Medicine; Emergency Provider Emergency Medicine; Family Provider Internal Medicine; PCP Internal Medicine; Referring Provider Internal Medicine; Visit Provider Internal Medicine
PROC: 0DJ08ZZ Inspection of Upper Intestinal Tract, Via Natural or Artificial Opening Endoscopic (ICD-10-PCS; CPT 43235; principal; 2019-11-04 20:30)
DX: J96.01 Acute respiratory failure with hypoxia (principal); J69.0 Pneumonitis due to inhalation of food and vomit; Z87.891 Personal history of nicotine dependence; T18.128A Food in esophagus causing other injury, initial encounter; E66.9 Obesity, unspecified; Z68.29 Body mass index [BMI] 29.0-29.9, adult; E87.6 Hypokalemia
CPT/HCPCS: 31500; 31720; 36415; 36600; 51702; 71045; 80048; 80053; 82550; 82803; 83605; 83735; 84100; 84478; 85025; 85610; 85730; 87040; 87070; 87205; 93005; 94002; 94003; 94640; 94660; 95831; 97161; 97166; 99251; 99285; J7030; J7050; J7120; A4216; G0463; J0295; J2405